=== PATIENT | male | born 1990 | race Caucasian/White ===

== ENCOUNTER → 2018-07-29 | Emergency (ER) | payer MEDICAID ==
[~2018-07-29] MED LIST: Amoxicillin/Clavulanate K 875-125 MG Tab ONE
--- NOTE | 2018-07-30 11:44 | EDM.PDOC ---
ED HPI GENERAL MEDICAL PROBLEM - General Chief Complaint: General Stated Complaint: Dental Pain Time Seen by Provider: 07/29/18 21:00 Source of Information: Reports: Patient History Limitations: Reports: No Limitations - History of Present Illness INITIAL COMMENTS - FREE TEXT/NARRATIVE: This is a 28yo M here for tooth pain or infection. He states he is unable to see his dentist until his MA gets approved. He has tooth pain and gum swelling on the left upper and lower molars. Onset: Gradual Duration: Week(s):, Getting Worse Quality: Reports: Ache Severity: Mild Tooth/Teeth Pain Score (Numeric/FACES): 6 - Related Data Allergies Allergy/AdvReac Type Severity Reaction Status Date / Time No Known Allergies Allergy Verified 07/29/18 20:37 Home Meds: Home Meds NK [No Known Home Meds] 04/10/14 [History] Past Medical History - Past Health History Medical/Surgical History: Denies Medical/Surgical History Musculoskeletal History: Reports: Other (See Below) Other Musculoskeletal History: "I broke my back a few years ago" - Past Surgical History GI Surgical History: Reports: Appendectomy Social & Family History - Tobacco Use Smoking Status *Q: Current Every Day Smoker Years of Tobacco use: 6 Packs/Tins Daily: 1 Used Tobacco, but Quit: No Second Hand Smoke Exposure: No - Caffeine Use Caffeine Use: Reports: Coffee - Recreational Drug Use Recreational Drug Use: No ED ROS GENERAL - Review of Systems Review Of Systems: ROS reveals no pertinent complaints other than HPI. ED EXAM, GENERAL - Physical Exam Exam: See Below Exam Limited By: No Limitations General Appearance: Alert, WD/WN, Mild Distress Ears: Normal External Exam Nose: Normal Inspection Throat/Mouth: Other (tooth caries, swollen left upper gums and tender left lower gum and molars) Head: Atraumatic, Normocephalic Neck: Normal Inspection Course - Vital Signs Last Recorded V/S: Last Vital Signs Temp 36.8 C 07/29/18 21:00 Pulse 65 07/29/18 21:00 Resp 16 07/29/18 21:00 BP 116/84 07/29/18 21:00 Pulse Ox 99 07/29/18 21:00 - Orders/Labs/Meds Meds: Medications Discontinued Medications Generic Name Dose Route Start Last Admin Trade Name Freq PRN Reason Stop Dose Admin Amoxicillin/Clavulanate Potassium 20 tab 07/29/18 21:00 Augmentin 875 Mg/125 Mg .ROUTE 07/29/18 21:01 .STK-MED ONE Departure - Departure Time of Disposition: 21:30 Disposition: Home, Self-Care 01 Condition: Good Clinical Impression: Tooth caries, Infected tooth - Discharge Information Instructions: Amoxicillin; Clavulanic Acid tablets Referrals: PCP,None [Primary Care Provider] - Forms: ED Department Discharge Additional Instructions: Begin taking provided Augmentin as directed: 1 tablet by mouth twice daily until all tablets are gone. May also take provided Aleve as directed: 2 tablets by mouth twice daily. Be sure to take with food to avoid upset stomach. DO NOT take any ibuprofen while taking Aleve. Follow up with dentist as soon as able. Call with any questions. - Problem List & Annotations (1) Infected tooth SNOMED Code(s): 170327213 Code(s): K04.7 - PERIAPICAL ABSCESS WITHOUT SINUS Status: Acute Priority : High Current Visit: Yes (2) Tooth caries SNOMED Code(s): 06908722 Code(s): K02.9 - DENTAL CARIES, UNSPECIFIED Status: Acute Priority: High Current Visit: Yes - Problem List Review Problem List Initiated/Reviewed/Updated: Yes - Assessment/Plan Plan: Patient placed on augmentin for 10 days. Discussed pain management with aleve and to take with food and water. Discussed f/u with dentist albaro. F/u as needed.
== END | disposition home or self-care (01) ==
LOC: LB.ED 20:35
DX: K04.7 Periapical abscess without sinus (principal); F17.210 Nicotine dependence, cigarettes, uncomplicated
CPT/HCPCS: 99282; A9270-GY

== ENCOUNTER 2018-10-14 11:49 | Emergency (ER) | payer MEDICAID ==
[2018-10-14] MEDS ORDERED: Acetaminophen/Codeine 300-30 MG Tab ONE (12:10)
[2018-10-14] MEDS ORDERED: Amoxicillin/Clavulanate K 875-125 MG Tab ONE (12:10)
--- NOTE | 2018-10-16 12:47 | EDM.PDOC ---
ED HPI GENERAL MEDICAL PROBLEM - General Time Seen by Provider: 10/14/18 11:59 - History of Present Illness INITIAL COMMENTS - FREE TEXT/NARRATIVE: This is a 28yo M here for concerns of a tooth chipped and pain radiating into the jaw. He has had teeth issues in the past and states he cannot get into his dentist right away. He denies any other concerns today. Onset: Sudden Duration: Day(s):, Getting Worse Quality: Reports: Ache Severity: Moderate Improves with: Reports: None Worsens with: Reports: None Associated Symptoms: Reports: No Other Symptoms Left Upper Tooth/Teeth Pain Score (Numeric/FACES): 10 - Related Data Allergies Allergy/AdvReac Type Severity Reaction Status Date / Time No Known Allergies Allergy Verified 10/14/18 11:58 Home Meds: Home Meds NK [No Known Home Meds] 04/10/14 [History] Past Medical History - Past Health History Medical/Surgical History: Denies Medical/Surgical History Musculoskeletal History: Reports: Other (See Below) Other Musculoskeletal History: "I broke my back a few years ago" - Past Surgical History GI Surgical History: Reports: Appendectomy Social & Family History - Caffeine Use Caffeine Use: Reports: Coffee ED ROS GENERAL - Review of Systems Review Of Systems: ROS reveals no pertinent complaints other than HPI. ED EXAM, GENERAL - Physical Exam Exam: See Below General Appearance: Alert, WD/WN, Mild Distress Eye Exam: Bilateral Eye: EOMI, PERRL Ears: Normal External Exam Nose: Normal Inspection Throat/Mouth: Other (caries and right upper molar crack) Head: Atraumatic, Normocephalic Neck: Normal Inspection Respiratory/Chest: No Respiratory Distress, Lungs Clear Cardiovascular: Normal Peripheral Pulses, Regular Rate, Rhythm GI/Abdominal: Normal Bowel Sounds Course - Vital Signs Last Recorded V/S: Last Vital Signs Temp 37.3 C 10/14/18 12:14 Pulse 71 10/14/18 12:14 Resp 18 10/14/18 12:14 BP 144/59 H 10/14/18 12:14 Pulse Ox 100 10/14/18 12:14 - Orders/Labs/Meds Meds: Medications Discontinued Medications Generic Name Dose Route Start Last Admin Trade Name Freq PRN Reason Stop Dose Admin Acetaminophen/Codeine Phosphate 20 tab 10/14/18 12:10 Tylenol With Codeine No.3 300mg/30mg .ROUTE 10/14/18 12:11 .STK-MED ONE Amoxicillin/Clavulanate Potassium 20 tab 10/14/18 12:10 Augmentin 875 Mg/125 Mg .ROUTE 10/14/18 12:11 .STK-MED ONE Departure - Departure Time of Disposition: 13:00 Disposition: Home, Self-Care 01 Condition: Good Clinical Impression: Infected tooth - Discharge Information Instructions: Tooth Injuries, [id number] Referrals: PCP,None [Primary Care Provider] - Additional Instructions: Discharge home. Diet: as tolerated Activity: as tolerated Medications: Tylenol with codeine 1 tablet every 4 hours for pain. Augmentin 1 tablet 2 times a day. Complete antibiotics. Follow up as needed and return to the ER if you have any questions or concerns. - Problem List & Annotations (1) Infected tooth SNOMED Code(s): 657857698 Code(s): K04.7 - PERIAPICAL ABSCESS WITHOUT SINUS Status: Acute Priority : High - Problem List Review Problem List Initiated/Reviewed/Updated: Yes - Assessment/Plan Plan: Counseled on supportive care and f/u with dentist. Discussed antibiotics use and side effects and taking them until completion. Discussed close f/u and rtc and dentist as directed. F/u as needed.
== END 2018-10-14 12:10 | disposition home or self-care (01) ==
LOC: LB.ED 11:49
DX: K04.7 Periapical abscess without sinus (principal); K02.9 Dental caries, unspecified; Z90.49 Acquired absence of other specified parts of digestive tract
CPT/HCPCS: 99282; A9270

== ENCOUNTER 2018-12-11 12:23 | Emergency (ER) | payer MEDICAID ==
--- NOTE | 2018-12-11 12:45 | EDM.PDOC ---
ED HPI GENERAL MEDICAL PROBLEM - General Chief Complaint: Gastrointestinal Problem Stated Complaint: STOMACH PAIN Time Seen by Provider: 12/11/18 12:35 Source of Information: Reports: Patient, Family, RN History Limitations: Reports: No Limitations - History of Present Illness INITIAL COMMENTS - FREE TEXT/NARRATIVE: 28 yr male presents with N/V, diarrhea and abdominal pain since this am. Middle Abdominal Pain Score (Numeric/FACES): 6 - Related Data Allergies Allergy/AdvReac Type Severity Reaction Status Date / Time No Known Allergies Allergy Verified 12/11/18 12:41 Home Meds: Home Meds Meloxicam 12/11/18 [History] Ondansetron [Zofran ODT] 4 mg PO Q8HR #9 tab.dis 12/11/18 [Rx] busPIRone HCl [Buspirone HCl] 15 mg PO DAILY 12/11/18 [History] Past Medical History - Past Health History Medical/Surgical History: Denies Medical/Surgical History Musculoskeletal History: Reports: Other (See Below) Other Musculoskeletal History: "I broke my back a few years ago" - Past Surgical History GI Surgical History: Reports: Appendectomy Social & Family History - Caffeine Use Caffeine Use: Reports: Coffee ED ROS GENERAL - Review of Systems Review Of Systems: See Below Constitutional: Reports: No Symptoms HEENT: Reports: No Symptoms Respiratory: Reports: No Symptoms, Other (smokes daily, about 1ppd) Cardiovascular: Reports: No Symptoms Endocrine: Reports: No Symptoms GI/Abdominal: Reports: Abdominal Pain, Diarrhea, Decreased Appetite, Nausea : Reports: No Symptoms Musculoskeletal: Reports: No Symptoms, Other (Takes Meloxicam and Steroid for back pain for 2 weeks.) Skin: Reports: No Symptoms Neurological: Reports: Headache Psychiatric: Reports: Anxiety (Takes medication for this) Hematologic/Lymphatic: Reports: No Symptoms Immunologic: Reports: No Symptoms ED EXAM, GI/ABD - Physical Exam Exam: See Below Exam Limited By: No Limitations General Appearance: Alert, No Apparent Distress Ears: Hearing Grossly Normal Nose: Normal Inspection Throat/Mouth: Normal Inspection, Normal Voice, No Airway Compromise Head: Atraumatic, Normocephalic Neck: Non-Tender, Full Range of Motion Respiratory/Chest: No Respiratory Distress, Lungs Clear, Normal Breath Sounds Cardiovascular: Regular Rate, Rhythm, No Edema GI/Abdominal Exam: Normal Bowel Sounds, Soft, Tender (low abdominal pain). No: Guarding (Male) Exam: Deferred Rectal (Males) Exam: Deferred Back Exam: Normal Inspection Extremities: Normal Range of Motion, Non-Tender, No Pedal Edema Neurological: Alert, Oriented, Normal Cognition Psychiatric: Normal Affect, Normal Mood Skin Exam: Warm, Dry, Normal Color Course - Vital Signs Last Recorded V/S: Last Vital Signs Temp 99.1 F 12/11/18 12:42 Pulse 71 12/11/18 12:42 Resp 20 12/11/18 12:42 BP 127/59 L 12/11/18 12:42 Pulse Ox 99 12/11/18 12:42 - Orders/Labs/Meds Labs: Laboratory Tests 12/11/18 12/11/18 Range/Units 12:52 12:52 WBC 6.7 D (4.0-11.0) K/uL RBC 4.76 (4.50-6.50) M/uL Hgb 15.5 (13.0-18.0) g/dL Hct 44.4 (40.0-54.0) % MCV 93 (76-96) fL MCH 32.6 H (27.0-32.0) pg MCHC 34.9 (31.0-35.0) g/dL RDW 11.9 (11.0-16.0) % Plt Count 182 (150-400) K/uL MPV 9.6 (6.0-10.0) fL Neut % (Auto) 62.8 (45.0-70.0) % Lymph % (Auto) 23.6 (20.0-40.0) % [place] % (Auto) 11.7 H (3.0-10.0) % Eos % (Auto) 1.6 (1.0-5.0) % Baso % (Auto) 0.3 (0.0-0.5) % Neut # (Auto) 4.23 (2.00-7.50) K/uL Lymph # (Auto) 1.59 (1.50-4.00) K/uL [place] # (Auto) 0.79 (0.20-0.80) K/uL Eos # (Auto) 0.11 (0.04-0.40) K/uL Baso # (Auto) 0.02 (0.02-0.10) K/uL Sodium 141 (136-145) mmol/L Potassium 4.2 (3.5-5.1) mmol/L Chloride 102 (98-107) mmol/L Carbon Dioxide 27.3 (21.0-32.0) mmol/L Anion Gap 15.9 H (5.0-15.0) mmol/L BUN 15 (8-26) mg/dL Creatinine 0.88 (0.70-1.30) mg/dL Est Cr Clr Drug Dosing 98.24 mL/min Estimated GFR (MDRD) > 60 (>60) MLS/MIN BUN/Creatinine Ratio 17.0 (6-25) Glucose 123 H (74-100) mg/dL Calcium 8.6 (8.5-10.1) mg/dL Total Bilirubin 1.3 H (0.0-1.0) mg/dL AST 32 (15-37) U/L ALT 39 (12-78) U/L Alkaline Phosphatase 74 (46-116) U/L Total Protein 6.9 (6.4-8.2) g/dL Albumin 3.9 (3.4-5.0) g/dL Globulin 3.0 (2.2-4.2) g/dL Albumin/Globulin Ratio 1.3 (0.8-2.0) Meds: Medications Discontinued Medications Generic Name Dose Route Start Last Admin Trade Name Freq PRN Reason Stop Dose Admin Sodium Chloride 1,000 mls @ 999 mls/hr 12/11/18 13:30 12/11/18 13:25 Normal Saline IV 999 mls/hr ASDIRECTED CASSANDRA Administration Ondansetron HCl 4 mg 12/11/18 13:16 12/11/18 13:17 Zofran Odt PO 4 mg Q8H PRN Administration Nausea/Vomiting Ondansetron HCl Confirm 12/11/18 13:24 Zofran Odt Administered 12/11/18 13:25 Dose 4 mg .ROUTE .STK-MED ONE - Re-Assessments/Exams Free Text/Narrative Re-Assessment/Exam: 12/11/18 14:01 Gastroenteritis: Zofran 4 mg PO given, IV fluids, NACL 1 liter bolus given. Symptoms improving. Labs reviewed, no leukocytosis and no electrolyte imbalance, Kidney function intact. Discharge to family care with Rx for Zofran, 1 tablet every 8 hour as needed for nausea. Note to be off of work today. Departure - Departure Time of Disposition: 14:38 Disposition: Home, Self-Care 01 Condition: Good Clinical Impression: Gastroenteritis - Discharge Information *PRESCRIPTION DRUG MONITORING PROGRAM REVIEWED*: Not Applicable *COPY OF PRESCRIPTION DRUG MONITORING REPORT IN PATIENT ARTURO: Not Applicable Prescriptions: Ondansetron [Zofran ODT] 4 mg PO Q8HR #9 tab.dis Instructions: Ondansetron oral dissolving tablet, Nausea and Vomiting, Adult Referrals: PCP,None [Primary Care Provider] - Forms: ED Department Discharge Additional Instructions: Discharge home. Do not go to work today, work excuss sent with patient. Zofran ODT 4mg 1 tablet every 8 hours as needed for nausea-script sent to the pharmacy to shredder picker. Follow up in the clinic as need. Call or return to the hospital if you have questions or concerns. - Assessment/Plan Plan: Gastroenteritis: Note for off of work today. Rx for Zofran 4mg PO q 8 hr prn nausea. JIM. Symptoms should improve in 24 hour. Discharge to family care.
[2018-12-11] MEDS ORDERED: Ondansetron 4 MG Tab.DIS PO PRN (13:16)
[2018-12-11] MEDS ORDERED: Ondansetron 4 MG Tab.DIS ONE (13:24)
[2018-12-11] MEDS ORDERED: Sodium Chloride 0.9% 1,000 ML IV SCH (13:30)
== END 2018-12-11 14:38 | disposition home or self-care (01) ==
LOC: LB.ED 12:23
DX: K52.9 Noninfective gastroenteritis and colitis, unspecified (principal); Z79.899 Other long term (current) drug therapy
CPT/HCPCS: 36415; 80053; 85025; 96360; 99284; A9270; J7030

== ENCOUNTER 2019-01-07 13:55 | Emergency (ER) | payer MEDICAID ==
--- NOTE | 2019-01-07 14:23 | EDM.PDOC ---
ED HPI GENERAL MEDICAL PROBLEM - General Chief Complaint: General Stated Complaint: NOT FEELING WELL Time Seen by Provider: 01/07/19 14:05 Source of Information: Reports: Patient, Family, RN History Limitations: Reports: No Limitations - History of Present Illness INITIAL COMMENTS - FREE TEXT/NARRATIVE: 28 yr male presents with dizziness, not feeling well and nauseated. States he did try to take 2 bites of food for lunch and this happened. He is using a new vaper pen with THC and was started about 1 week ago up to bid. Started taking from Rx of physician in [place] and went to [place] for the medication. States he is taking this for his back. His last dose was last night for this. States he does work at the local [employer]. His is with him today. States he has 2 young children at home. He is on FMLA currently and is working currently. - Related Data Allergies Allergy/AdvReac Type Severity Reaction Status Date / Time No Known Allergies Allergy Verified 01/07/19 13:59 Home Meds: Home Meds Ondansetron [Zofran ODT] 4 mg PO Q8HR #9 tab.dis 12/11/18 [Rx] busPIRone HCl [Buspirone HCl] 15 mg PO DAILY 12/11/18 [History] Acetaminophen [Tylenol Extra Strength] 1,000 mg PO Q8H PRN 01/07/19 [History] Amoxicillin 500 mg PO TID #30 capsule 01/07/19 [Rx] Non-Formulary Medication [NF Drug] 1 inh INH TID PRN 01/07/19 [History] Past Medical History - Past Health History Medical/Surgical History: Denies Medical/Surgical History Musculoskeletal History: Reports: Other (See Below) Other Musculoskeletal History: "I broke my back a few years ago" - Past Surgical History GI Surgical History: Reports: Appendectomy Social & Family History - Caffeine Use Caffeine Use: Reports: Coffee ED ROS GENERAL - Review of Systems Review Of Systems: See Below Constitutional: Denies: Fever, Chills Respiratory: Reports: No Symptoms Cardiovascular: Reports: Lightheadedness. Denies: Chest Pain, Dyspnea on Exertion GI/Abdominal: Reports: Nausea. Denies: Diarrhea, Vomiting : Reports: No Symptoms Musculoskeletal: Reports: No Symptoms Skin: Reports: No Symptoms Neurological: Reports: Dizziness, Headache. Denies: Confusion, Syncope, Difficulty Walking Psychiatric: Reports: No Symptoms Hematologic/Lymphatic: Reports: No Symptoms ED EXAM, GENERAL - Physical Exam Exam: See Below Exam Limited By: No Limitations General Appearance: Alert, No Apparent Distress Ears: Normal External Exam, Hearing Grossly Normal Ear Exam: Right Ear: Auricle Normal, TM normal, Left Ear: Canal Normal, Erythema , TM Bulging Throat/Mouth: Normal Oropharynx, Normal Voice, No Airway Compromise Head: Atraumatic, Normocephalic Neck: Normal Inspection, Supple, Non-Tender Respiratory/Chest: No Respiratory Distress, Lungs Clear, Normal Breath Sounds Cardiovascular: Regular Rate, Rhythm, No Edema GI/Abdominal: Normal Bowel Sounds, Soft, Non-Tender Extremities: Normal Range of Motion, No Pedal Edema Neurological: Alert, Oriented, Normal Cognition Psychiatric: Normal Affect, Normal Mood Skin Exam: Warm, Dry, Normal Color Lymphatic: No Adenopathy Course - Vital Signs Last Recorded V/S: Last Vital Signs Temp 99.0 F 01/07/19 14:01 Pulse 84 01/07/19 14:25 Resp 16 01/07/19 14:01 BP 120/50 L 01/07/19 14:25 Pulse Ox 99 01/07/19 14:25 - Orders/Labs/Meds Orders: Active Orders 24 hr Category Date Time Status EKG Documentation Completion [RC] ASDIRECTED Care 01/07/19 14:16 Active Labs: Laboratory Tests 01/07/19 01/07/19 Range/Units 14:13 14:13 WBC 8.0 (4.0-11.0) K/uL RBC 4.90 (4.50-6.50) M/uL Hgb 16.0 (13.0-18.0) g/dL Hct 45.8 (40.0-54.0) % MCV 94 (76-96) fL MCH 32.7 H (27.0-32.0) pg MCHC 34.9 (31.0-35.0) g/dL RDW 12.1 (11.0-16.0) % Plt Count 204 (150-400) K/uL MPV 9.3 (6.0-10.0) fL Neut % (Auto) 66.4 (45.0-70.0) % Lymph % (Auto) 22.4 (20.0-40.0) % [place] % (Auto) 9.9 (3.0-10.0) % Eos % (Auto) 1.2 (1.0-5.0) % Baso % (Auto) 0.1 (0.0-0.5) % Neut # (Auto) 5.32 (2.00-7.50) K/uL Lymph # (Auto) 1.80 (1.50-4.00) K/uL [place] # (Auto) 0.79 (0.20-0.80) K/uL Eos # (Auto) 0.10 (0.04-0.40) K/uL Baso # (Auto) 0.01 L (0.02-0.10) K/uL Sodium 141 (136-145) mmol/L Potassium 4.1 (3.5-5.1) mmol/L Chloride 103 (98-107) mmol/L Carbon Dioxide 29.9 (21.0-32.0) mmol/L Anion Gap 12.2 (5.0-15.0) mmol/L BUN 13 (8-26) mg/dL Creatinine 0.97 (0.70-1.30) mg/dL Est Cr Clr Drug Dosing TNP Estimated GFR (MDRD) > 60 (>60) MLS/MIN BUN/Creatinine Ratio 13.4 (6-25) Glucose 110 H (74-100) mg/dL Calcium 9.1 (8.5-10.1) mg/dL Total Bilirubin 1.3 H (0.0-1.0) mg/dL AST 33 (15-37) U/L ALT 52 (12-78) U/L Alkaline Phosphatase 74 (46-116) U/L Total Protein 7.3 (6.4-8.2) g/dL Albumin 4.0 (3.4-5.0) g/dL Globulin 3.3 (2.2-4.2) g/dL Albumin/Globulin Ratio 1.2 (0.8-2.0) - Re-Assessments/Exams Free Text/Narrative Re-Assessment/Exam: 01/07/19 15:49 LE Reviewed labs and EKG with pt. No orthostatic hypotension noted. EKG is NSR and no ST Changes noted. No leukocytosis noted, no electrolyte imbalance. Pt is asking for a note of this ER visit for his mother to watch his children, and she is missing work because of this. Left otitis media: Rx for Amoxicillin tid X 10 days. Recommend use of Tylenol 1000mg every 6 hour as needed and limit to 3000 - 4000 in 24 hour period. May alternate with Ibuprofen as needed. F/U with other provider for symptoms of THC vaping. Symptoms should improve in 2-3 days. RTC if symptoms persist or worsen. Departure - Departure Time of Disposition: 15:18 Disposition: Home, Self-Care 01 Condition: Good Clinical Impression: Left otitis media - Discharge Information *PRESCRIPTION DRUG MONITORING PROGRAM REVIEWED*: Not Applicable *COPY OF PRESCRIPTION DRUG MONITORING REPORT IN PATIENT ARTURO: Not Applicable Prescriptions: Amoxicillin 500 mg PO TID #30 capsule Instructions: Amoxicillin capsules or tablets, Otitis Media, Adult, Easy-to- Read Referrals: PCP,None [Primary Care Provider] - Forms: ED Department Discharge Additional Instructions: Tale Amoxicillin as prescribed for ear infection. Note given for work release. Follow up if you continue to have any more issues. - My Orders Last 24 Hours: My Active Orders 01/07/19 14:16 EKG Documentation Completion [RC] ASDIRECTED - Assessment/Plan Last 24 Hours: My Active Orders 01/07/19 14:16 EKG Documentation Completion [RC] ASDIRECTED Plan: Left otitis media: Rx for Amoxicillin tid X 10 days. Recommend use of Tylenol 1000mg every 6 hour as needed and limit to 3000 - 4000 in 24 hour period. May alternate with Ibuprofen as needed. F/U with other provider for symptoms of THC vaping. Symptoms should improve in 2-3 days. RTC if symptoms persist or worsen.
== END 2019-01-07 15:18 | disposition home or self-care (01) ==
LOC: LB.ED 13:55
DX: H66.92 Otitis media, unspecified, left ear (principal); Z79.899 Other long term (current) drug therapy
CPT/HCPCS: 36415; 80053; 85025; 93005; 99284-25

== ENCOUNTER 2019-09-24 00:47 | Emergency (ER) | payer MEDICAID ==
[2019-09-24] MEDS ORDERED: predniSONE 20 MG Tab PO ONE (02:10)
[2019-09-24] MEDS ORDERED: Albuterol/Ipratropium 3.0-0.5 MG/3 ML Neb Soln NEB ONE (02:10)
--- NOTE | 2019-09-24 02:26 | EDM.PDOC ---
ED HPI GENERAL MEDICAL PROBLEM - General Chief Complaint: Respiratory Problem Stated Complaint: DIFFICULTY BREATHING Time Seen by Provider: 09/24/19 02:00 - History of Present Illness INITIAL COMMENTS - FREE TEXT/NARRATIVE: Michael was about an hour out, returning home from [place], and called due to issues with some wheezing. This came on, relatively abruptly. No other associated symptoms. No trauma or cough. No nausea. Denies recent illness. He was vaping his marijuana and, sometimes near the end, it wull not really smell the best. They intercepted with his girlfriend driving about 5 miles [place] of [facility] [address]. Sats of 98% or better since arrival. No h/o asthma, or seasonal features. - Related Data Allergies Allergy/AdvReac Type Severity Reaction Status Date / Time No Known Allergies Allergy Verified 01/07/19 13:59 Home Meds: Home Meds Ondansetron [Zofran ODT] 4 mg PO Q8HR #9 tab.dis 12/11/18 [Rx] busPIRone HCl [Buspirone HCl] 15 mg PO DAILY 12/11/18 [History] Acetaminophen [Tylenol Extra Strength] 1,000 mg PO Q8H PRN 01/07/19 [History] Amoxicillin 500 mg PO TID #30 capsule 01/07/19 [Rx] Non-Formulary Medication [NF Drug] 1 inh INH TID PRN 01/07/19 [History] Past Medical History - Past Health History Medical/Surgical History: Denies Medical/Surgical History Gastrointestinal History: Reports: None Musculoskeletal History: Reports: Other (See Below) Other Musculoskeletal History: "I broke my back a few years ago" Psychiatric History: Reports: Anxiety - Past Surgical History GI Surgical History: Reports: Appendectomy Social & Family History - Caffeine Use Caffeine Use: Reports: Coffee ED ROS GENERAL - Review of Systems Review Of Systems: Comprehensive ROS is negative, except as noted in HPI. ED EXAM, GENERAL - Physical Exam Exam: See Below General Appearance: Alert, WD/WN, No Apparent Distress Eye Exam: Bilateral Eye: EOMI, Normal Inspection Ears: Normal External Exam, Hearing Grossly Normal Nose: Normal Inspection Head: Atraumatic, Normocephalic Neck: Normal Inspection, Supple, Non-Tender, Full Range of Motion Respiratory/Chest: No Respiratory Distress, Lungs Clear, Normal Breath Sounds Cardiovascular: Regular Rate, Rhythm, No Murmur GI/Abdominal: Normal Bowel Sounds, Soft Extremities: Normal Inspection, Non-Tender, No Pedal Edema, Normal Capillary Refill Psychiatric: Normal Affect, Normal Mood Skin Exam: Warm, Dry, Intact Lymphatic: No Adenopathy Course - Vital Signs Text/Narrative:: gave a neb with complete relief. Explained may have had some relative bronchospasm Departure - Departure Time of Disposition: 02:10 Disposition: Home, Self-Care 01 Clinical Impression: Chest tightness - Discharge Information Instructions: Shortness of Breath, Adult, [id number]
== END 2019-09-24 02:38 | disposition home or self-care (01) ==
LOC: LB.ED 00:47
DX: R07.89 Other chest pain (principal); Z79.899 Other long term (current) drug therapy
CPT/HCPCS: 94640; 99285; J7512; 99283; A0425; A0429; J7620-GY

== ENCOUNTER 2020-02-28 21:01 | Emergency (ER) | payer MEDICAID ==
[2020-02-28] MEDS ORDERED: LORazepam 2 MG/ML SDV IVPUSH ONE ×3 (21:50→22:01)
[2020-02-28] MEDS ORDERED: Ondansetron 4 MG/2 ML SDV IVPUSH ONE (21:53)
[2020-02-28] MEDS ORDERED: Sodium Chloride 0.9% 1,000 ML IV ONE (21:56)
[2020-02-28] MEDS ORDERED: Dextrose 5%-0.9% NaCl with KCl 1,000 ML ONE (22:24)
[2020-02-28] MEDS ORDERED: Dextrose 5%-0.9% NaCl with KCl 1,000 ML IV SCH (22:30)
--- NOTE | 2020-02-28 23:07 | EDM.PDOC ---
ED HPI GENERAL MEDICAL PROBLEM - General Chief Complaint: Respiratory Problem Stated Complaint: abd pain, feels like he can not breath Time Seen by Provider: 02/28/20 21:20 History Limitations: Reports: Other (Patient is extremely anxious) - History of Present Illness INITIAL COMMENTS - FREE TEXT/NARRATIVE: The patient is a 29-year-old white male who reports that he was in [place] 1 hour ago. He was offered marijuana and shared some marijuana with an acquaintance. He reports that 20 to 30 minutes later he started having problems with visual swirling, tremor ,dry skin, nausea without vomiting and dry mouth felt short of breath prior to coming to the emergency department. He thinks he may be reacting to whatever it was that he smoked. The patient uses medical marijuana on a near daily basis. States he is never felt this way for marijuana. Onset: Other (30 minutes prior to arrival) Onset Date: 02/28/20 Onset Time: 20:30 Duration: Other (30 minutes) Location: Reports: Other (Abdominal discomfort from symphysis to epigastric region) - Related Data Allergies Allergy/AdvReac Type Severity Reaction Status Date / Time No Known Allergies Allergy Verified 01/07/19 13:59 Home Meds: Home Meds Non-Formulary Medication [NF Drug] 1 inh INH TID PRN 01/07/19 [History] Past Medical History - Past Health History Medical/Surgical History: Denies Medical/Surgical History Gastrointestinal History: Reports: None Musculoskeletal History: Reports: Other (See Below) Other Musculoskeletal History: "I broke my back a few years ago" Psychiatric History: Reports: Anxiety - Past Surgical History GI Surgical History: Reports: Appendectomy Social & Family History - Caffeine Use Caffeine Use: Reports: Coffee - Alcohol Use Alcohol Use Frequency: Not Used in Over 6 Months ED ROS GENERAL - Review of Systems Review Of Systems: See Below Constitutional: Denies: Fever, Chills HEENT: Reports: No Symptoms, Vision Change Respiratory: Reports: Shortness of Breath. Denies: Cough, Sputum Cardiovascular: Reports: Lightheadedness. Denies: Chest Pain, Blood Pressure Problem GI/Abdominal: Reports: Abdominal Pain, Nausea. Denies: Distension, Vomiting : Reports: No Symptoms Musculoskeletal: Reports: No Symptoms Skin: Reports: Other (Dry skin) Neurological: Reports: Tremors Psychiatric: Reports: Agitation, Anxiety. Denies: Hallucinations ED EXAM, GENERAL - Physical Exam Exam: See Below Exam Limited By: Other (Anxiety of the patient) General Appearance: Alert, Anxious, Moderate Distress Ears: Normal External Exam, Normal Canal, Hearing Grossly Normal Ear Exam: Bilateral Ear: TM normal Nose: Normal Inspection, Normal Mucosa Throat/Mouth: Normal Inspection, Normal Lips, Normal Gums, Normal Oropharynx, Normal Voice, No Airway Compromise Head: Atraumatic, Normocephalic Neck: Supple, Non-Tender, Full Range of Motion Respiratory/Chest: Lungs Clear, Normal Breath Sounds, Chest Non-Tender, Respiratory Distress Cardiovascular: No JVD, Tachycardia, Other (Rate 135) GI/Abdominal: Soft, Non-Tender, No Distention Back Exam: Normal Inspection, Full Range of Motion Extremities: Normal Inspection, Normal Range of Motion, Non-Tender, No Pedal Edema Neurological: Alert, Oriented Psychiatric: Anxious, Other (Repeats himself often) Skin Exam: Warm, Intact, Normal Color, No Rash Lymphatic: No Adenopathy #1 Interpretation EKG Date: 02/28/20 Time: 21:30 Rhythm: Other (Sinus tachycardia without infarct or ischemia by my reading) Rate (Beats/Min): 135 Comparison: NA - No Prior EKG EKG Interpretation Comments: Sinus tachycardia Course - Vital Signs Text/Narrative:: The patient initially had an EKG and saline lock started. He was treated with Ativan 2 mg IV followed by 2 further milligrams IV. He improved gradually and was given another 1 mg dose of Ativan.. Along with the Ativan the patient was treated with 2 -4 mg doses of Zofran. IV of normal saline was started and run at 999 an hour. After potassium returned at 2.9 the IV was changed to D5 normal saline with 20 KCl at 500 mils per hour. Patient's tachycardia gradually improved. His nausea improved as well he was given a raspy sandwich as he said he was hungry. He is resting quietly at this time. Plan is to complete the liter of D5 normal saline with 20 KCl and discharge to home if patient continues to do well Last Recorded V/S: Last Vital Signs Temp 98.9 F 02/28/20 21:20 Pulse 90 02/29/20 00:11 Resp 16 02/29/20 00:11 BP 104/48 L 02/29/20 00:11 Pulse Ox 100 02/29/20 00:11 - Orders/Labs/Meds Labs: Laboratory Tests 02/28/20 02/28/20 02/28/20 Range/Units 21:09 21:58 21:58 WBC 15.3 H D (4.0-11.0) K/uL RBC 4.91 (4.50-6.50) M/uL Hgb 16.0 (13.0-18.0) g/dL Hct 45.1 (40.0-54.0) % MCV 92 (76-96) fL MCH 32.6 H (27.0-32.0) pg MCHC 35.5 H (31.0-35.0) g/dL RDW 12.0 (11.0-16.0) % Plt Count 259 D (150-400) K/uL MPV 10.0 (6.0-10.0) fL Neut % (Auto) 62.3 (45.0-70.0) % Lymph % (Auto) 26.7 (20.0-40.0) % [place] % (Auto) 9.7 (3.0-10.0) % Eos % (Auto) 1.2 (1.0-5.0) % Baso % (Auto) 0.1 (0.0-0.5) % Neut # (Auto) 9.52 H (2.00-7.50) K/uL Lymph # (Auto) 4.09 H (1.50-4.00) K/uL [place] # (Auto) 1.49 H (0.20-0.80) K/uL Eos # (Auto) 0.19 (0.04-0.40) K/uL Baso # (Auto) 0.02 (0.02-0.10) K/uL Sodium 138 (136-145) mmol/L Potassium 2.9 L* D (3.5-5.1) mmol/L Chloride 101 (98-107) mmol/L Carbon Dioxide 24.0 (21.0-32.0) mmol/L Anion Gap 15.9 H (5.0-15.0) mmol/L BUN 17 D (8-26) mg/dL Creatinine 1.00 (0.70-1.30) mg/dL Est Cr Clr Drug Dosing TNP Estimated GFR (MDRD) > 60 (>60) MLS/MIN BUN/Creatinine Ratio 17.0 (6-25) Glucose 119 H (74-100) mg/dL Calcium 9.0 (8.5-10.1) mg/dL Total Bilirubin 0.8 D (0.0-1.0) mg/dL AST 21 (15-37) U/L ALT 28 (12-78) U/L Alkaline Phosphatase 80 (46-116) U/L Total Protein 7.4 (6.4-8.2) g/dL Albumin 4.2 (3.4-5.0) g/dL Globulin 3.2 (2.2-4.2) g/dL Albumin/Globulin Ratio 1.3 (0.8-2.0) Urine Opiates Screen (NEGATIVE) Ur Oxycodone Screen (NEGATIVE) Urine Methadone Screen (NEGATIVE) Ur Barbiturates Screen (NEGATIVE) Ur Tricyclics Screen (NEGATIVE) Ur Phencyclidine Scrn (NEGATIVE) Ur Amphetamine Screen (NEGATIVE) U Methamphetamines Scrn (NEGATIVE) Urine MDMA Screen (NEGATIVE) U Benzodiazepines Scrn (NEGATIVE) U Cocaine Metab Screen (NEGATIVE) U Marijuana (THC) Screen (NEGATIVE) SARS CoV-2 RNA Rapid YOGI Negative 02/28/20 Range/Units 21:59 WBC (4.0-11.0) K/uL RBC (4.50-6.50) M/uL Hgb (13.0-18.0) g/dL Hct (40.0-54.0) % MCV (76-96) fL MCH (27.0-32.0) pg MCHC (31.0-35.0) g/dL RDW (11.0-16.0) % Plt Count (150-400) K/uL MPV (6.0-10.0) fL Neut % (Auto) (45.0-70.0) % Lymph % (Auto) (20.0-40.0) % [place] % (Auto) (3.0-10.0) % Eos % (Auto) (1.0-5.0) % Baso % (Auto) (0.0-0.5) % Neut # (Auto) (2.00-7.50) K/uL Lymph # (Auto) (1.50-4.00) K/uL [place] # (Auto) (0.20-0.80) K/uL Eos # (Auto) (0.04-0.40) K/uL Baso # (Auto) (0.02-0.10) K/uL Sodium (136-145) mmol/L Potassium (3.5-5.1) mmol/L Chloride (98-107) mmol/L Carbon Dioxide (21.0-32.0) mmol/L Anion Gap (5.0-15.0) mmol/L BUN (8-26) mg/dL Creatinine (0.70-1.30) mg/dL Est Cr Clr Drug Dosing Estimated GFR (MDRD) (>60) MLS/MIN BUN/Creatinine Ratio (6-25) Glucose (74-100) mg/dL Calcium (8.5-10.1) mg/dL Total Bilirubin (0.0-1.0) mg/dL AST (15-37) U/L ALT (12-78) U/L Alkaline Phosphatase (46-116) U/L Total Protein (6.4-8.2) g/dL Albumin (3.4-5.0) g/dL Globulin (2.2-4.2) g/dL Albumin/Globulin Ratio (0.8-2.0) Urine Opiates Screen Negative (NEGATIVE) Ur Oxycodone Screen Negative (NEGATIVE) Urine Methadone Screen Negative (NEGATIVE) Ur Barbiturates Screen Negative (NEGATIVE) Ur Tricyclics Screen Negative (NEGATIVE) Ur Phencyclidine Scrn Negative (NEGATIVE) Ur Amphetamine Screen Negative (NEGATIVE) U Methamphetamines Scrn Negative (NEGATIVE) Urine MDMA Screen Negative (NEGATIVE) U Benzodiazepines Scrn Negative (NEGATIVE) U Cocaine Metab Screen Negative (NEGATIVE) U Marijuana (THC) Screen Negative (NEGATIVE) SARS CoV-2 RNA Rapid YOGI Meds: Medications Discontinued Medications Generic Name Dose Route Start Last Admin Trade Name Freq PRN Reason Stop Dose Admin Sodium Chloride 1,000 mls @ 999 mls/hr 02/28/20 21:56 02/28/20 22:30 Normal Saline IV 02/28/20 22:56 Infused .BOLUS ONE Infusion Potassium Chloride/Dextrose/Sod Cl 1,000 mls @ 500 mls/hr 02/28/20 22:30 02/28/20 22:30 D5 Ns With 20 Meq Kcl IV 500 mls/hr ASDIRECTED CASSANDRA Administration Potassium Chloride/Dextrose/Sod Cl Confirm 02/28/20 22:24 02/28/20 23:32 D5 Ns With 20 Meq Kcl Administered 02/28/20 22:25 Not Given Dose 1,000 mls @ as directed .ROUTE .STK-MED ONE Lorazepam 2 mg 02/28/20 21:50 02/28/20 21:30 Ativan IVPUSH 02/28/20 21:51 2 mg ONETIME ONE Administration Lorazepam 2 mg 02/28/20 21:54 02/28/20 21:51 Ativan IVPUSH 02/28/20 21:55 2 mg ONETIME ONE Administration Lorazepam 1 mg 02/28/20 22:01 02/28/20 22:11 Ativan IVPUSH 02/28/20 22:02 1 mg ONETIME ONE Administration Ondansetron HCl 8 mg 02/28/20 21:53 02/28/20 21:53 Zofran IVPUSH 02/28/20 21:54 8 mg ONETIME ONE Administration Departure - Departure Time of Disposition: 06:30 Disposition: Home, Self-Care 01 Clinical Impression: Ingestion, drug, inadvertent or accidental Qualifiers: Encounter type: initial encounter Qualified Code(s): T50.901A - Poisoning by unspecified drugs, medicaments and biological substances, accidental (unintentional), initial encounter - Discharge Information *PRESCRIPTION DRUG MONITORING PROGRAM REVIEWED*: Not Applicable *COPY OF PRESCRIPTION DRUG MONITORING REPORT IN PATIENT ARTURO: Not Applicable Instructions: Accidental Drug Poisoning, Adult Referrals: PCP,None [Primary Care Provider] - Forms: ED Department Discharge Additional Instructions: Do not smoke any street drugs even marijuana to avoid accidental ingestion of unknown drugs Return if symptoms worsen. Follow up in ED if not 100 per centback to normal tomorrow. Follow up in clinic or ED as needed for any worsening
== END 2020-02-29 06:35 | disposition home or self-care (01) ==
LOC: LB.ED 21:01
DX: T40.7X1A Poisoning by cannabis (derivatives), accidental (unintentional), initial encounter (principal); F41.9 Anxiety disorder, unspecified; Z90.49 Acquired absence of other specified parts of digestive tract; Z20.828 Contact with and (suspected) exposure to other viral communicable diseases
CPT/HCPCS: 36415; 80053; 80307; 85025; 96365; 96366; 96375; 96376; 99284; 99284-25; J2060; J2405; J3480; J7040; U0002

== ENCOUNTER 2020-03-01 14:59 | Emergency (ER) | payer MEDICAID ==
--- NOTE | 2020-03-01 15:44 | EDM.PDOC ---
ED HPI GENERAL MEDICAL PROBLEM - General Chief Complaint: General Stated Complaint: TROUBLE BREATHING Time Seen by Provider: 03/01/20 15:15 Source of Information: Reports: Patient - History of Present Illness INITIAL COMMENTS - FREE TEXT/NARRATIVE: Patient states he has been having generalized abdominal pain for over 2 weeks. He had a negative abd CT in [place] 2 weeks ago. The pain has not changed and is intermittent. + nausea at times. Denies any fever, chills, cough (aside from his "normal " smokers cough), diarrhea, bloody or aria tarry stools, or bloody emesis. C/O chest pain, anxiety, and generalized abdominal pain. Onset Date: 02/15/20 Location: Reports: Chest, Abdomen Quality: Reports: Ache Severity: Mild Improves with: Reports: None Worsens with: Reports: None Associated Symptoms: Reports: Chest Pain, Loss of Appetite - Related Data Allergies Allergy/AdvReac Type Severity Reaction Status Date / Time No Known Allergies Allergy Verified 03/01/20 15:06 Home Meds: Home Meds Non-Formulary Medication [NF Drug] 1 inh INH TID PRN 01/07/19 [History] Past Medical History - Past Health History Medical/Surgical History: Denies Medical/Surgical History Gastrointestinal History: Reports: None Musculoskeletal History: Reports: Other (See Below) Other Musculoskeletal History: "I broke my back a few years ago" Psychiatric History: Reports: Anxiety - Past Surgical History GI Surgical History: Reports: Appendectomy Social & Family History - Tobacco Use Years of Tobacco use: 17 Packs/Tins Daily: 1 - Caffeine Use Caffeine Use: Reports: Coffee - Recreational Drug Use Recreational Drug Type: Reports: Marijuana/Hashish Recreational Drug Use Frequency: Daily ED ROS GENERAL - Review of Systems Review Of Systems: See Below Constitutional: Reports: No Symptoms HEENT: Reports: No Symptoms Respiratory: Reports: Other (he feels that he is unable to take a deep breath or smoke) Cardiovascular: Reports: Chest Pain Endocrine: Reports: No Symptoms GI/Abdominal: Reports: Abdominal Pain, Decreased Appetite, Nausea : Reports: No Symptoms. Denies: Discharge, Flank Pain Musculoskeletal: Reports: Back Pain (chronic, takes medical cannabis) Skin: Reports: No Symptoms Neurological: Reports: No Symptoms Psychiatric: Reports: Anxiety (patient is very anxious) Immunologic: Reports: No Symptoms ED EXAM, GENERAL - Physical Exam Exam: See Below Exam Limited By: No Limitations General Appearance: Alert, Anxious Ears: Normal External Exam Nose: Normal Inspection Head: Atraumatic Neck: Normal Inspection, Non-Tender, Full Range of Motion Respiratory/Chest: No Respiratory Distress, Lungs Clear, Normal Breath Sounds, No Accessory Muscle Use Cardiovascular: Normal Peripheral Pulses, Regular Rate, Rhythm, No Edema, No JVD, No Murmur Peripheral Pulses: 3+: Radial (L), Radial (R), Posterior Tibial (L), Posterior Tibial (R) GI/Abdominal: Normal Bowel Sounds, Soft, No Organomegaly, No Distention, Tender Back Exam: Normal Inspection. No: CVA Tenderness (R), CVA Tenderness (L) Extremities: Normal Inspection, Normal Range of Motion, Non-Tender, No Pedal Edema, Normal Capillary Refill Neurological: Alert, Oriented, Normal Cognition, No Motor/Sensory Deficits Psychiatric: Normal Affect, Anxious Skin Exam: Warm, Dry, Intact, Normal Color Course - Vital Signs Last Recorded V/S: Last Vital Signs Temp 97.8 F 03/01/20 15:08 Pulse 97 03/01/20 15:08 Resp 18 03/01/20 15:08 BP 158/76 H 03/01/20 15:08 Pulse Ox 99 03/01/20 15:08 - Orders/Labs/Meds Orders: Active Orders 24 hr Category Date Time Status EKG Documentation Completion [RC] ASDIRECTED Care 03/01/20 15:36 Active Chest 1V Frontal [CR] Stat Exams 03/01/20 15:34 Taken EKG 12 Lead [EK] Routine Ther 03/01/20 15:35 Ordered Labs: Laboratory Tests 03/01/20 03/01/20 03/01/20 Range/Units 15:34 15:34 16:03 WBC 6.8 D (4.0-11.0) K/uL RBC 4.99 (4.50-6.50) M/uL Hgb 16.2 (13.0-18.0) g/dL Hct 46.7 (40.0-54.0) % MCV 94 (76-96) fL MCH 32.5 H (27.0-32.0) pg MCHC 34.7 (31.0-35.0) g/dL RDW 12.2 (11.0-16.0) % Plt Count 221 (150-400) K/uL MPV 9.4 (6.0-10.0) fL Neut % (Auto) 60.7 (45.0-70.0) % Lymph % (Auto) 26.1 (20.0-40.0) % [place] % (Auto) 11.7 H (3.0-10.0) % Eos % (Auto) 1.2 (1.0-5.0) % Baso % (Auto) 0.3 (0.0-0.5) % Neut # (Auto) 4.10 (2.00-7.50) K/uL Lymph # (Auto) 1.76 (1.50-4.00) K/uL [place] # (Auto) 0.79 (0.20-0.80) K/uL Eos # (Auto) 0.08 (0.04-0.40) K/uL Baso # (Auto) 0.02 (0.02-0.10) K/uL Sodium 140 (136-145) mmol/L Potassium 3.7 D (3.5-5.1) mmol/L Chloride 103 (98-107) mmol/L Carbon Dioxide 27.7 (21.0-32.0) mmol/L Anion Gap 13.0 (5.0-15.0) mmol/L BUN 11 D (8-26) mg/dL Creatinine 0.96 (0.70-1.30) mg/dL Est Cr Clr Drug Dosing 89.26 mL/min Estimated GFR (MDRD) > 60 (>60) MLS/MIN BUN/Creatinine Ratio 11.5 (6-25) Glucose 127 H (74-100) mg/dL Calcium 9.1 (8.5-10.1) mg/dL Total Bilirubin 1.3 H D (0.0-1.0) mg/dL AST 28 (15-37) U/L ALT 33 (12-78) U/L Alkaline Phosphatase 79 (46-116) U/L Total Protein 7.5 (6.4-8.2) g/dL Albumin 4.3 (3.4-5.0) g/dL Globulin 3.2 (2.2-4.2) g/dL Albumin/Globulin Ratio 1.3 (0.8-2.0) Lipase 121 (73-393) U/L Meds: Medications Discontinued Medications Generic Name Dose Route Start Last Admin Trade Name Fallon PRN Reason Stop Dose Admin Ketorolac Tromethamine 15 mg 03/01/20 16:21 03/01/20 16:24 Toradol IVPUSH 03/01/20 16:22 15 mg ONETIME ONE Administration Ketorolac Tromethamine Confirm 03/01/20 16:31 03/01/20 16:25 Toradol Administered 03/01/20 16:32 Not Given Dose 30 mg .ROUTE .STK-MED ONE - Re-Assessments/Exams Free Text/Narrative Re-Assessment/Exam: 03/01/20 16:54 We discussed having an ABD CT. He states he has had several, latest 2 weeks ago with negative results. We discussed radiation and decided to have outpatient US tomorrow. Patient is quite agreeable to the plan. Departure - Departure Time of Disposition: 16:51 Disposition: Home, Self-Care 01 Condition: Good Clinical Impression: Abdominal pain of unknown etiology - Discharge Information *PRESCRIPTION DRUG MONITORING PROGRAM REVIEWED*: Not Applicable *COPY OF PRESCRIPTION DRUG MONITORING REPORT IN PATIENT ARTURO: Not Applicable Instructions: Abdominal Pain, Adult, [id number] Referrals: PCP,None [Primary Care Provider] - Forms: ED Department Discharge Additional Instructions: Have US done tomorrow as discussed. Results will go to Kinza meza MD in [place]. Return to ED for any increased or new concerning symptoms. Sepsis Event Note (ED) - Evaluation Sepsis Screening Result: No Definite Risk - Focused Exam Vital Signs: Vital Signs Temp Pulse Resp BP Pulse Ox 03/01/20 15:08 97.8 F 97 18 158/76 H 99 - My Orders Last 24 Hours: My Active Orders 03/01/20 15:34 Chest 1V Frontal [CR] Stat 03/01/20 15:35 EKG 12 Lead [EK] Routine 03/01/20 15:36 EKG Documentation Completion [RC] ASDIRECTED - Assessment/Plan Last 24 Hours: My Active Orders 03/01/20 15:34 Chest 1V Frontal [CR] Stat 03/01/20 15:35 EKG 12 Lead [EK] Routine 03/01/20 15:36 EKG Documentation Completion [RC] ASDIRECTED Plan: Pain is much improved after IV toradol, patient now C/O nausea, will medicate wi th 8mg zofran ODT prior to DC. Patient agreeable to out patient US tomorrow at 1230, NPO for 4 hours prior. We discussed when to return to ED, he verbalized understanding. DDX: appendicitis, diverticulitis, pancreatitis, or gastritis. PMH appendectomy, lipase negative.
[2020-03-01] MEDS ORDERED: Ketorolac 60 MG/2 ML SDV IVPUSH ONE (16:21)
[2020-03-01] MEDS ORDERED: Ketorolac 30 MG/ML SDV ONE (16:31)
--- NOTE | 2020-03-01 16:51 | CR ---
DATE OF SERVICE: 03/01/2020 CLINICAL DATA: Chest Pain AP chest: Comparison is made to a prior exam dated 21 August 2014. The heart size is normal. The lungs are clear. No pneumothorax. No pleural effusions. No evidence of acute intrathoracic disease. MTDD
[2020-03-01] MEDS ORDERED: Ondansetron 4 MG Tab.DIS PO ONE (16:53)
[2020-03-01] MEDS ORDERED: Ondansetron 4 MG Tab.DIS ONE (17:07)
== END 2020-03-01 17:00 | disposition home or self-care (01) ==
LOC: LB.ED 14:59
DX: R10.84 Generalized abdominal pain (principal); F17.210 Nicotine dependence, cigarettes, uncomplicated
CPT/HCPCS: 36415; 71045; 80053; 83690; 85025; 96374; 99285-25; A9270-GY; J1885

== ENCOUNTER 2020-04-04 04:26 | Emergency (ER) | payer MEDICAID ==
[2020-04-04] MEDS ORDERED: Sodium Chloride 0.9% 1,000 ML IV ONE (05:00)
[2020-04-04] MEDS ORDERED: Sodium Chloride 0.9% 10 ML Syringe FLUSH PRN (05:00)
[2020-04-04] MEDS ORDERED: Prochlorperazine 10 MG in Sodium Chloride 0.9% 50 ML IV ONE (05:00)
--- NOTE | 2020-04-04 05:07 | EDM.PDOC ---
ED HPI GENERAL MEDICAL PROBLEM - General Chief Complaint: General Stated Complaint: Feeling unwell Time Seen by Provider: 04/04/20 04:45 Source of Information: Reports: Patient History Limitations: Reports: No Limitations - History of Present Illness INITIAL COMMENTS - FREE TEXT/NARRATIVE: pt presents to the ER "feeling unwell" stating he woke up yesterday feeling such and vomited, went to work and felt worse throughout the day. associated symptoms are intermittent SOB, nausea, vomiting, fatigue. pt denies chest pain, fever, weakness,cough. - Related Data Allergies Allergy/AdvReac Type Severity Reaction Status Date / Time No Known Allergies Allergy Verified 03/01/20 15:06 Home Meds: Home Meds Non-Formulary Medication [NF Drug] 1 inh INH TID PRN 01/07/19 [History] Past Medical History - Past Health History Medical/Surgical History: Denies Medical/Surgical History Gastrointestinal History: Reports: None Musculoskeletal History: Reports: Other (See Below) Other Musculoskeletal History: "I broke my back a few years ago" Psychiatric History: Reports: Anxiety - Past Surgical History GI Surgical History: Reports: Appendectomy Social & Family History - Caffeine Use Caffeine Use: Reports: Coffee ED ROS GENERAL - Review of Systems Review Of Systems: Comprehensive ROS is negative, except as noted in HPI. ED EXAM, GENERAL - Physical Exam Exam: See Below Exam Limited By: No Limitations General Appearance: Alert, WD/WN Eye Exam: Bilateral Eye: EOMI, PERRL Throat/Mouth: Normal Oropharynx, Normal Voice, No Airway Compromise Respiratory/Chest: No Respiratory Distress, Lungs Clear, Normal Breath Sounds, No Accessory Muscle Use Cardiovascular: Normal Peripheral Pulses, Regular Rate, Rhythm, No Edema, No Murmur Peripheral Pulses: 2+: Radial (L), Radial (R), Posterior Tibial (L), Posterior Tibial (R) Extremities: Normal Inspection, Normal Range of Motion, Non-Tender, No Pedal Edema, Normal Capillary Refill Neurological: Alert, Oriented, Normal Cognition, Normal Gait, No Motor/Sensory Deficits Psychiatric: Normal Affect, Normal Mood Skin Exam: Warm, Dry, Intact Course - Vital Signs Last Recorded V/S: Last Vital Signs Temp 98.1 F 04/04/20 04:37 Pulse 107 H 04/04/20 04:37 Resp 20 04/04/20 04:37 BP 152/93 H 04/04/20 04:37 Pulse Ox 100 04/04/20 04:37 - Orders/Labs/Meds Orders: Active Orders 24 hr Category Date Time Status Peripheral IV Care [RC] PRN Care 04/04/20 05:00 Ordered CBC WITH AUTO DIFF [HEME] Stat Lab 04/04/20 04:58 Ordered COMPREHENSIVE METABOLIC PN,CMP [CHEM] Stat Lab 04/04/20 04:58 Ordered CORONAVIRUS COVID-19 RAPID [MOLEC] Stat Lab 04/04/20 05:00 Ordered Prochlorperazine [Compazine] 10 mg Med 04/04/20 05:00 Ordered Sodium Chloride 0.9% [Normal Saline] 50 ml IV ONETIME Sodium Chloride 0.9% [Normal Saline] 1,000 ml Med 04/04/20 05:00 Ordered IV .BOLUS Sodium Chloride 0.9% [Saline Flush] Med 04/04/20 05:00 Ordered 10 ml FLUSH ASDIRECTED PRN Peripheral IV Insertion Adult [OM.PC] Routine Oth 04/04/20 05:00 Ordered Departure - Departure Time of Disposition: 06:15 Disposition: Home, Self-Care 01 Condition: Good Clinical Impression: Gastroenteritis - Discharge Information *PRESCRIPTION DRUG MONITORING PROGRAM REVIEWED*: No *COPY OF PRESCRIPTION DRUG MONITORING REPORT IN PATIENT ARTURO: No Referrals: PCP,None [Primary Care Provider] - Additional Instructions: stop drinking alcohol drink at least 100oz water a day take tylenol and ibuprofen as needed you shouldn't need any nausea medicine foods high in potassium are cantaloupe, green leafy veggies. Sepsis Event Note (ED) - Evaluation Sepsis Screening Result: No Definite Risk - Focused Exam Vital Signs: Vital Signs Temp Pulse Resp BP Pulse Ox 04/04/20 04:37 98.1 F 107 H 20 152/93 H 100 - Problem List & Annotations (1) Gastroenteritis SNOMED Code(s): 66898557 Code(s): K52.9 - NONINFECTIVE GASTROENTERITIS AND COLITIS, UNSPECIFIED Status: Acute Current Visit: Yes - Problem List Review Problem List Initiated/Reviewed/Updated: Yes - My Orders Last 24 Hours: My Active Orders 04/04/20 04:58 CBC WITH AUTO DIFF [HEME] Stat COMPREHENSIVE METABOLIC PN,CMP [CHEM] Stat 04/04/20 05:00 Peripheral IV Care [RC] PRN CORONAVIRUS COVID-19 RAPID [MOLEC] Stat Prochlorperazine [Compazine] 10 mg Sodium Chloride 0.9% [Normal Saline] 50 ml IV ONETIME Sodium Chloride 0.9% [Normal Saline] 1,000 ml IV .BOLUS Sodium Chloride 0.9% [Saline Flush] 10 ml FLUSH ASDIRECTED PRN Peripheral IV Insertion Adult [OM.PC] Routine - Assessment/Plan Last 24 Hours: My Active Orders 04/04/20 04:58 CBC WITH AUTO DIFF [HEME] Stat COMPREHENSIVE METABOLIC PN,CMP [CHEM] Stat 04/04/20 05:00 Peripheral IV Care [RC] PRN CORONAVIRUS COVID-19 RAPID [MOLEC] Stat Prochlorperazine [Compazine] 10 mg Sodium Chloride 0.9% [Normal Saline] 50 ml IV ONETIME Sodium Chloride 0.9% [Normal Saline] 1,000 ml IV .BOLUS Sodium Chloride 0.9% [Saline Flush] 10 ml FLUSH ASDIRECTED PRN Peripheral IV Insertion Adult [OM.PC] Routine Assessment:: assessment: gastroenteritis plan: home care instructions of drink fluids, OTC pain relievers, follow up in clinic, stop drinking alcohol differentials considered were acute alcohol, anxiety, acute drug ingestion.
[2020-04-04] MEDS ORDERED: Prochlorperazine 10 MG/2 ML SDV ONE (05:27)
[2020-04-04] MEDS ORDERED: Potassium Chloride 10 MEQ Tab.ER PO SCH (08:00)
== END 2020-04-04 06:35 | disposition home or self-care (01) ==
LOC: LB.ED 04:26
DX: K52.9 Noninfective gastroenteritis and colitis, unspecified (principal); Z20.828 Contact with and (suspected) exposure to other viral communicable diseases
CPT/HCPCS: 36415; 80053; 85025; 87635; 96365; 99284; A9270; J0780; J7030; 99283; U0002

== ENCOUNTER 2020-05-01 14:56 | Emergency (ER) | payer MEDICAID ==
[2020-05-01] MEDS ORDERED: Ibuprofen 200 MG Tab ONE (15:00)
[2020-05-01] MEDS ORDERED: Acetaminophen 325 MG Tab PO ONE (15:49)
[2020-05-01] MEDS ORDERED: Ibuprofen 400 MG Tab PO ONE (15:49)
--- NOTE | 2020-05-01 15:50 | EDM.PDOC ---
ED HPI GENERAL MEDICAL PROBLEM - General Chief Complaint: Upper Extremity Injury/Pain Stated Complaint: SHOULDER PAIN Time Seen by Provider: 05/01/20 15:35 Source of Information: Reports: Patient - History of Present Illness INITIAL COMMENTS - FREE TEXT/NARRATIVE: 29 year old male presents with 2-3 days of right shoulder pain, states he had it when he woke up. Denies any injury or trauma. Has full ROM although with pain. Has been taking 200mg ibuprofen and 1 tylenol at home without relief. Denies any cough, numbness, CP, SOB, or N/V/D. 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, NSAIDS - Related Data Allergies Allergy/AdvReac Type Severity Reaction Status Date / Time No Known Allergies Allergy Verified 03/01/20 15:06 Home Meds: Home Meds Non-Formulary Medication [NF Drug] 1 inh INH TID PRN 01/07/19 [History] Past Medical History - Past Health History Medical/Surgical History: Denies Medical/Surgical History Gastrointestinal History: Reports: None Musculoskeletal History: Reports: Other (See Below) Other Musculoskeletal History: "I broke my back a few years ago" Psychiatric History: Reports: Anxiety - Past Surgical History GI Surgical History: Reports: Appendectomy Social & Family History - Tobacco Use Tobacco Use Status *Q: Current Every Day Tobacco User Years of Tobacco use: 6 Packs/Tins Daily: 1 Used Tobacco, but Quit: No Second Hand Smoke Exposure: Yes - Caffeine Use Caffeine Use: Reports: Coffee, Soda - Recreational Drug Use Recreational Drug Use: No Review of Systems - Review of Systems Review Of Systems: See Below Constitutional: Reports: No Symptoms Eyes: Reports: No Symptoms Ears: Reports: No Symptoms Nose: Reports: No Symptoms Mouth/Throat: Reports: No Symptoms Respiratory: Reports: No Symptoms Cardiovascular: Reports: No Symptoms GI/Abdominal: Reports: No Symptoms Genitourinary: Reports: No Symptoms Musculoskeletal: Reports: Shoulder Pain Skin: Reports: No Symptoms Neurological: Reports: No Symptoms Psychiatric: Reports: No Symptoms ED EXAM, GENERAL - Physical Exam Exam: See Below Exam Limited By: No Limitations General Appearance: Alert, Mild Distress Ears: Normal External Exam Head: Atraumatic Neck: Normal Inspection, Non-Tender, Full Range of Motion Respiratory/Chest: No Respiratory Distress, No Accessory Muscle Use Cardiovascular: Normal Peripheral Pulses Peripheral Pulses: 3+: Radial (L), Radial (R) Back Exam: Normal Inspection, Full Range of Motion Extremities: Normal Inspection, Normal Range of Motion, Other (pain with ROM to right shoulder) Neurological: Alert, Oriented, Normal Gait, Normal Reflexes, No Motor/Sensory Deficits Psychiatric: Normal Affect, Normal Mood Skin Exam: Warm, Dry, Intact, Normal Color Lymphatic: No Adenopathy Departure - Departure Time of Disposition: 15:52 Disposition: Home, Self-Care 01 Condition: Good Clinical Impression: Shoulder pain, right Qualifiers: Chronicity: acute Qualified Code(s): M25.511 - Pain in right shoulder - Discharge Information *PRESCRIPTION DRUG MONITORING PROGRAM REVIEWED*: Not Applicable *COPY OF PRESCRIPTION DRUG MONITORING REPORT IN PATIENT ARTURO: Not Applicable Instructions: Shoulder Pain Referrals: PCP,None [Primary Care Provider] - Additional Instructions: You may use heat and/or thermacare pads. Please take 600mg ibuprofen and 650mg of tylenol every 6 hours with food for the pain. Continue gentle movement exercises. Return to ED for any increased or new concerning pain.
[2020-05-01] MEDS ORDERED: Ibuprofen 600 MG Tab ONE (15:56)
[2020-05-01] MEDS ORDERED: Acetaminophen 325 MG Tab ONE (15:56)
== END 2020-05-01 16:03 | disposition home or self-care (01) ==
LOC: LB.ED 14:56
DX: M25.511 Pain in right shoulder (principal); F17.210 Nicotine dependence, cigarettes, uncomplicated
CPT/HCPCS: 99283; A9270-GY

== ENCOUNTER 2020-07-21 22:21 | Emergency (ER) | payer MEDICAID ==
--- NOTE | 2020-07-22 02:57 | ER ---
HISTORY OF PRESENT ILLNESS: A 30-year-old male who comes in to the emergency room with his with complaints of waking up feeling lightheaded and dizzy. This started about 30 minutes ago. 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 The patient is not feeling sick. He denies any problems with nausea or vomiting or breathing. He tells me that when he first got up, he did not feel good because of the lightheadedness and dizziness, so he ate a bowl of chili and this did not help, that is when he decided to come in. Nursing staff states that after her initial questioning of the patient, he promptly fell asleep. OBJECTIVE: GENERAL APPEARANCE: upon entering the emergency room, the patient was sleeping. No respiratory distress noted. VITAL SIGNS: Reviewed. He is afebrile. Blood pressure 142/78, pulse 74, respirations 16, O2 sats 98%. The patient was aroused with verbal and physical stimuli. He tells me that he just feels kind of dizzy. He is not having any issues with breathing or pain and does not feel sick. He has not been coughing, and again no problems with nausea. HEENT: Eyes, pupils are slightly dilated. They are reactive to light and equal. Ears, TMs are normal. Nares are patent. Oral mucous membranes are moist. Tonsils not enlarged or injected. Pharynx not inflamed. LUNGS: Clear. CARDIAC: Heart sounds distinct. S1, S2 present. Regular rate. No murmurs. ABDOMEN: Soft. Bowel sounds are present. SKIN: Warm and dry. LABORATORY DATA: CBC is normal. CMP shows a blood glucose of 134. Kidney function and liver enzymes are normal. UA is normal. Urine tox screen is positive for opioids and THC. DIAGNOSIS: Accidental drug overdose, mild in nature. TREATMENT PLAN: During the course of time waiting for the lab results, the patient was sleeping quietly without any sign of respiratory depression or distress. The patient will be discharged home. His will take him home. He is to sleep the rest of the night without taking any further medications and his symptoms should be much better in the morning. If his condition does not improve, they are to call or come back tomorrow as needed. The patient is agreeable with the treatment plan and has no further questions. CRS/MODL /[id number]
== END 2020-07-21 23:45 | disposition home or self-care (01) ==
LOC: LB.ED 22:21
DX: T40.2X1A Poisoning by other opioids, accidental (unintentional), initial encounter (principal)
CPT/HCPCS: 36415; 80053; 80307; 81003; 85025; 99283; 99284

== ENCOUNTER 2020-09-14 08:13 | Emergency (ER) | payer MEDICAID ==
[2020-09-14] MEDS ORDERED: methylPREDNISolone Sodium Succinate 40 MG/1 ML SDV IM ONE (09:21)
--- NOTE | 2020-09-14 09:28 | EDM.PDOC ---
ED HPI GENERAL MEDICAL PROBLEM - General Chief Complaint: General Stated Complaint: POISON NOÉ / PAINI IN TESTICLES Time Seen by Provider: 09/14/20 08:50 Source of Information: Reports: Patient History Limitations: Reports: No Limitations - History of Present Illness INITIAL COMMENTS - FREE TEXT/NARRATIVE: patient presented to the ER with a c/o rash all over his body. Reports that it started 2 days ago after he went into the ditch -to get his truck tire. He reports it happened to him in the past, when he was diagnosed with poison noé and improved with steroids. No SOB . Reports it itches every where. Haven't tried anything yet. Also reports, that he has a slight testicular pain. 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 Denies swelling or pain with urination. Symptoms been going on for a while - reports he feels discomfort after he lifts heavy stuff at work. Already on hydrocodone PO. Onset: Sudden Duration: Day(s): (2) Right Pain Score (Numeric/FACES): 7 - Related Data Allergies Allergy/AdvReac Type Severity Reaction Status Date / Time No Known Allergies Allergy Verified 09/14/20 08:33 Home Meds: Home Meds Non-Formulary Medication [NF Drug] 1 inh INH TID PRN 01/07/19 [History] Hydrocodone/Acetaminophen [Hydrocodon-Acetaminophen 5-325] 1 tab PO ASDIRECTED 07/21/20 [History] clonazePAM [Clonazepam] 0.5 mg PO BID 07/21/20 [History] QUEtiapine Fumarate [Seroquel] 300 mg PO DAILY 09/14/20 [History] hydrOXYzine HCL [hydrOXYzine] 50 mg PO BID PRN 09/14/20 [History] Past Medical History - Past Health History Medical/Surgical History: Denies Medical/Surgical History Gastrointestinal History: Reports: None Musculoskeletal History: Reports: Other (See Below) Other Musculoskeletal History: "I broke my back a few years ago" Psychiatric History: Reports: Anxiety - Past Surgical History GI Surgical History: Reports: Appendectomy Male Surgical History: Reports: Other (See Below) Other Male Surgeries/Procedures: testicular pain Social & Family History - Tobacco Use Years of Tobacco use: 10 Packs/Tins Daily: 1.5 - Caffeine Use Caffeine Use: Reports: Soda - Recreational Drug Use Recreational Drug Type: Reports: Marijuana/Hashish Other Recreational Drug Type: medical marijuana ED ROS GENERAL - Review of Systems Review Of Systems: See Below Constitutional: Reports: No Symptoms HEENT: Reports: No Symptoms Respiratory: Reports: No Symptoms Cardiovascular: Reports: No Symptoms GI/Abdominal: Reports: No Symptoms Skin: Reports: Pruritis, Rash Neurological: Reports: No Symptoms Psychiatric: Reports: Anxiety ED EXAM, GENERAL - Physical Exam Exam: See Below Exam Limited By: No Limitations General Appearance: Alert, No Apparent Distress Eye Exam: Bilateral Eye: EOMI Respiratory/Chest: No Respiratory Distress Cardiovascular: Normal Peripheral Pulses (Male) Exam: No Hernia, Scrotum Tenderness (R) (very minimal discomfort - but no actual tenderness ). No: Hernia, Penile Lesions, Scrotal Swelling, Testicular Mass, Urethral Discharge Skin Exam: Rash (throught his body) Course - Vital Signs Last Recorded V/S: Last Vital Signs Temp 37.0 C 09/14/20 08:34 Pulse 85 09/14/20 08:34 Resp 18 09/14/20 08:34 BP 149/68 H 09/14/20 08:34 Pulse Ox 100 09/14/20 08:34 - Orders/Labs/Meds Orders: Active Orders 24 hr Category Date Time Status UA RFX OPHELIA AND CULT IF INDIC [URIN] Urgent Lab 09/14/20 09:30 Ordered Ketorolac [Toradol] Med 09/14/20 10:20 Once 60 mg IM ONETIME ONE Meds: Medications Discontinued Medications Generic Name Dose Route Start Last Admin Trade Name Freq PRN Reason Stop Dose Admin Methylprednisolone Sodium Succinate 40 mg 09/14/20 09:21 09/14/20 09:25 Methylprednisolone Sodium Succinate 40 Mg/1 Ml Sdv IM 09/14/20 09:22 40 mg ONETIME ONE Administration - Re-Assessments/Exams Free Text/Narrative Re-Assessment/Exam: For rash - IM solumedrol 40mg was given For testicular symptom - UA was ordered to rule out a UTI - this was WNL patient to be d/cd on a medrol dose sharath Departure - Departure Time of Disposition: 10:21 Disposition: Home, Self-Care 01 Condition: Good Clinical Impression: Poison noé dermatitis - Discharge Information *PRESCRIPTION DRUG MONITORING PROGRAM REVIEWED*: Not Applicable *COPY OF PRESCRIPTION DRUG MONITORING REPORT IN PATIENT ARTURO: Not Applicable Instructions: Poison [place] Dermatitis, [id number] Referrals: PCP,None [Primary Care Provider] - Forms: ED Department Discharge Sepsis Event Note (ED) - Evaluation Sepsis Screening Result: No Definite Risk - Focused Exam Vital Signs: Vital Signs Temp Pulse Resp BP Pulse Ox 09/14/20 08:34 37.0 C 85 18 149/68 H 100 - Problem List & Annotations (1) Poison noé dermatitis SNOMED Code(s): 399128865 Code(s): L23.7 - ALLERGIC CONTACT DERMATITIS DUE TO PLANTS, EXCEPT FOOD Status: Acute Priority: Low Current Visit: Yes - Problem List Review Problem List Initiated/Reviewed/Updated: Yes - My Orders Last 24 Hours: My Active Orders 09/14/20 09:30 UA RFX OPHELIA AND CULT IF INDIC [URIN] Urgent 09/14/20 10:20 Ketorolac [Toradol] 60 mg IM ONETIME ONE - Assessment/Plan Last 24 Hours: My Active Orders 09/14/20 09:30 UA RFX OPHELIA AND CULT IF INDIC [URIN] Urgent 09/14/20 10:20 Ketorolac [Toradol] 60 mg IM ONETIME ONE Plan: - take prednisone and Benadryl as prescribed - recommend smoking cessation - also recommend to ice the affected area and use ibuprofen to help with discomfort - follow up with your PCP in 1-2 weeks as needed
[2020-09-14] MEDS ORDERED: Ketorolac 60 MG/2 ML SDV IM ONE (10:20)
== END 2020-09-14 10:26 | disposition home or self-care (01) ==
LOC: LB.ED 08:13
DX: L23.7 Allergic contact dermatitis due to plants, except food (principal); Z72.0 Tobacco use
CPT/HCPCS: 81003; 96372; 99284; J1885; J2920; 99283

== ENCOUNTER 2020-11-08 17:10 | Emergency (ER) | payer MEDICAID ==
[2020-11-08] MEDS: Diphtheria,Pertussis(Acell),Tetanus Vaccine 0.5 ML SDV IM ONE (17:20)
--- NOTE | 2020-11-08 17:29 | EDM.PDOC ---
ED HPI GENERAL MEDICAL PROBLEM - General Chief Complaint: General Stated Complaint: STEPPED ON YONI NAIL Time Seen by Provider: 11/08/20 17:15 Source of Information: Reports: Patient History Limitations: Reports: No Limitations - History of Present Illness INITIAL COMMENTS - FREE TEXT/NARRATIVE: stepped on a yoni nail yesterday - bare foot - right side cleaned the wound and applied antibiotics ointment - occurred yesterday - Related Data Allergies Allergy/AdvReac Type Severity Reaction Status Date / Time No Known Allergies Allergy Verified 09/14/20 08:33 Home Meds: Home Meds Non-Formulary Medication [NF Drug] 1 inh INH TID PRN 01/07/19 [History] Hydrocodone/Acetaminophen [Hydrocodon-Acetaminophen 5-325] 1 tab PO ASDIRECTED 07/21/20 [History] clonazePAM [Clonazepam] 0.5 mg PO BID 07/21/20 [History] QUEtiapine Fumarate [Seroquel] 300 mg PO DAILY 09/14/20 [History] hydrOXYzine HCL [hydrOXYzine] 50 mg PO BID PRN 09/14/20 [History] Amoxicillin 500 mg PO BID #6 tab 11/08/20 [Rx] Past Medical History - Past Health History Medical/Surgical History: Denies Medical/Surgical History Gastrointestinal History: Reports: None Musculoskeletal History: Reports: Other (See Below) Other Musculoskeletal History: "I broke my back a few years ago" Psychiatric History: Reports: Anxiety - Past Surgical History GI Surgical History: Reports: Appendectomy Male Surgical History: Reports: Other (See Below) Other Male Surgeries/Procedures: testicular pain Social & Family History - Caffeine Use Caffeine Use: Reports: Soda ED ROS GENERAL - Review of Systems Review Of Systems: See Below Constitutional: Reports: No Symptoms HEENT: Reports: No Symptoms Respiratory: Reports: No Symptoms Cardiovascular: Reports: No Symptoms GI/Abdominal: Reports: No Symptoms Musculoskeletal: Reports: No Symptoms Neurological: Reports: No Symptoms ED EXAM, GENERAL - Physical Exam Exam: See Below Exam Limited By: No Limitations General Appearance: Alert, WD/WN, No Apparent Distress Eye Exam: Bilateral Eye: EOMI Respiratory/Chest: No Respiratory Distress, Lungs Clear Cardiovascular: Normal Peripheral Pulses GI/Abdominal: Normal Bowel Sounds, Soft Skin Exam: Other (there is evidence of small puncture wound to the sole of the right foot - no redness or drainage) Course - Orders/Labs/Meds Orders: Active Orders 24 hr Category Date Time Status Vaccines to be Administered [RC] PER UNIT ROUTINE Care 11/08/20 17:21 Ordered Meds: Medications Discontinued Medications Generic Name Dose Route Start Last Admin Trade Name Fallon PRN Reason Stop Dose Admin Amoxicillin 500 mg 11/08/20 17:22 Amoxicillin 500 Mg Cap PO 11/08/20 17:23 ONETIME ONE Diphtheria/Tetanus/Acell Pertussis 0.5 ml 11/08/20 17:21 Diphtheria,Pertussis(Acell),Tetanus Vaccine 0.5 Ml Sdv IM 11/08/20 17:22 .ONCE ONE - Re-Assessments/Exams Free Text/Narrative Re-Assessment/Exam: 11/08/20 17:27 wound was cleaned tdap was given amoxicillin was given and prescribed Departure - Departure Time of Disposition: 17:26 Disposition: Home, Self-Care 01 Condition: Good Clinical Impression: Puncture wound with foreign body, right foot, initial encounter - Discharge Information *PRESCRIPTION DRUG MONITORING PROGRAM REVIEWED*: Not Applicable *COPY OF PRESCRIPTION DRUG MONITORING REPORT IN PATIENT ARTURO: Not Applicable Prescriptions: Amoxicillin 500 mg PO BID #6 tab - Problem List & Annotations (1) Puncture wound with foreign body, right foot, initial encounter SNOMED Code(s): 719431574, [id number] Code(s): S91.341A - PUNCTURE WOUND WITH FOREIGN BODY, RIGHT FOOT, INIT ENCNTR Status: Acute Priority: Low - Problem List Review Problem List Initiated/Reviewed/Updated: Yes - My Orders Last 24 Hours: My Active Orders 11/08/20 17:21 Vaccines to be Administered [RC] PER UNIT ROUTINE - Assessment/Plan Last 24 Hours: My Active Orders 11/08/20 17:21 Vaccines to be Administered [RC] PER UNIT ROUTINE Plan: - take oral antibiotics as prescribed - keep wound dry and clean - apply antibiotics ointment on the wound at least once daily
[2020-11-08] MEDS: Amoxicillin 500 MG Cap PO ONE (17:32)
== END 2020-11-08 17:50 | disposition home or self-care (01) ==
LOC: LB.ED 17:10
DX: S91.341A Puncture wound with foreign body, right foot, initial encounter (principal); Z23 Encounter for immunization; W22.8XXA Striking against or struck by other objects, initial encounter
CPT/HCPCS: 90471; 90715; 99283; A9270-GY

== ENCOUNTER 2020-12-09 11:55 | Emergency (ER) | payer MEDICAID ==
--- NOTE | 2020-12-09 12:14 | EDM.PDOC ---
ED HPI GENERAL MEDICAL PROBLEM - General Stated Complaint: PINK EYE Time Seen by Provider: 12/09/20 11:55 - History of Present Illness INITIAL COMMENTS - FREE TEXT/NARRATIVE: Patient is here with complaints of redness itching and discomfort involving the right eye. He woke up with the symptoms a couple of nights ago. He has not had any drainage or discharge from the eye. He denies any injury to the eye and is not aware of any possible insect bite. The patient has not been running a fever, and denies any problems with coughing sneezing or wheezing. - Related Data Allergies Allergy/AdvReac Type Severity Reaction Status Date / Time No Known Allergies Allergy Verified 09/14/20 08:33 Home Meds: Home Meds Non-Formulary Medication [NF Drug] 1 inh INH TID PRN 01/07/19 [History] Hydrocodone/Acetaminophen [Hydrocodon-Acetaminophen 5-325] 1 tab PO ASDIRECTED 07/21/20 [History] clonazePAM [Clonazepam] 0.5 mg PO BID 07/21/20 [History] QUEtiapine Fumarate [Seroquel] 300 mg PO DAILY 09/14/20 [History] hydrOXYzine HCL [hydrOXYzine] 50 mg PO BID PRN 09/14/20 [History] Amoxicillin 500 mg PO BID #6 tab 11/08/20 [Rx] Past Medical History - Past Health History Medical/Surgical History: Denies Medical/Surgical History Gastrointestinal History: Reports: None Musculoskeletal History: Reports: Other (See Below) Other Musculoskeletal History: "I broke my back a few years ago" Psychiatric History: Reports: Anxiety - Past Surgical History GI Surgical History: Reports: Appendectomy Male Surgical History: Reports: Other (See Below) Other Male Surgeries/Procedures: testicular pain Social & Family History - Family History Family Medical History: No Pertinent Family History - Caffeine Use Caffeine Use: Reports: Energy Drinks ED ROS GENERAL - Review of Systems Review Of Systems: Comprehensive ROS is negative, except as noted in HPI. HEENT: Reports: Other (Redness and swelling around Rt eye.) ED EXAM, SKIN/RASH Exam: See Below Eye Exam: Right Eye: Other (Redness and swelling around the Rt eye. Sclera is white. No drainage noted. I could not see any sign of an insect bite.) Departure - Departure Time of Disposition: 12:05 Disposition: Home, Self-Care 01 Condition: Good Clinical Impression: Allergic reaction - Discharge Information *PRESCRIPTION DRUG MONITORING PROGRAM REVIEWED*: Not Applicable *COPY OF PRESCRIPTION DRUG MONITORING REPORT IN PATIENT ARTURO: Not Applicable Referrals: Conrado Barrett MD [Primary Care Provider] - Additional Instructions: Patient will be discharged on Benadryl which he is to use 1 or 2 tablets every 6 hours for the next couple of days. I also will put him on a low-dose prednisone 20 mg today followed by 10 mg a day for 3 days.
== END 2020-12-09 12:10 | disposition home or self-care (01) ==
LOC: LB.ED 11:55
DX: T78.40XA Allergy, unspecified, initial encounter (principal); Z79.899 Other long term (current) drug therapy
CPT/HCPCS: 99282

== ENCOUNTER 2021-04-12 09:30 | Emergency (ER) | payer MEDICAID ==
[2021-04-12] MEDS ORDERED: Ketorolac 30 MG/ML SDV IM ONE (09:46)
[2021-04-12] MEDS ORDERED: Ketorolac 30 MG/ML SDV ONE (10:12)
--- NOTE | 2021-04-12 10:56 | EDM.PDOC ---
ED HPI GENERAL MEDICAL PROBLEM - General Chief Complaint: Abdominal Pain Stated Complaint: RIGHT SIDE PAIN Time Seen by Provider: 04/12/21 09:30 Source of Information: Reports: Patient History Limitations: Reports: No Limitations - History of Present Illness INITIAL COMMENTS - FREE TEXT/NARRATIVE: 22-year-old male presents to the ED complaining of a gradual onset of right flank pain. Patient describes the pain as a gradual onset that gets worse with movement. Does not get better with Tylenol. Pain appears to be positional at times. Pain radiates around to the backOn the right side. He describes his pain as a dull constant squeezing. Patient positive for: Intermittent flow interruption. Negative for blood in urine, dark urine. patient denies chest pain, shortness of breath, near syncope/syncope, nausea vomiting, constipation/diarrhea dizzy lightheaded, blurred vision, red swollen joints, difficulty swallowing, fever Right Abdomen Pain Score (Numeric/FACES): 7 - Related Data Allergies Allergy/AdvReac Type Severity Reaction Status Date / Time No Known Allergies Allergy Verified 04/12/21 09:39 Home Meds: Home Meds Non-Formulary Medication [NF Drug] 1 inh INH TID PRN 01/07/19 [History] Acetaminophen/HYDROcodone [HYDROcodone-Acetaminophen 5-325 MG *] 1 tab PO Q6H PRN #12 each 04/12/21 [Rx] Tamsulosin [Flomax] 0.4 mg PO DAILY #14 cap.er 04/12/21 [Rx] Past Medical History - Past Health History Medical/Surgical History: Denies Medical/Surgical History Gastrointestinal History: Reports: None Musculoskeletal History: Reports: Other (See Below) Other Musculoskeletal History: L1 T10 fracture ([id number]) Psychiatric History: Reports: Anxiety - Past Surgical History GI Surgical History: Reports: Appendectomy Male Surgical History: Reports: Other (See Below) Other Male Surgeries/Procedures: testicular pain Social & Family History - Family History Family Medical History: No Pertinent Family History - Tobacco Use Tobacco Use Status *Q: Current Every Day Tobacco User Years of Tobacco use: 12 Packs/Tins Daily: 2 - Caffeine Use Caffeine Use: Reports: Energy Drinks ED ROS GENERAL - Review of Systems Review Of Systems: Comprehensive ROS is negative, except as noted in HPI. ED EXAM, RENAL/ - Physical Exam Exam: See Below Text/Narrative:: 30-year-old male found semifowler position in bay to ED. ABC intact. Patient appears to be in moderate distress secondary to pain. No obvious trauma noted patient speaking in full sentences. Alert and oriented through 3 GCS 4 5 6 Exam Limited By: No Limitations General Appearance: Alert, WD/WN, Moderate Distress Eye Exam: Bilateral Eye: EOMI, PERRL Ears: Normal External Exam, Hearing Grossly Normal Nose: Normal Inspection, No Blood Head: Atraumatic, Normocephalic Respiratory/Chest: No Respiratory Distress, Lungs Clear, Normal Breath Sounds, No Accessory Muscle Use, Chest Non-Tender Cardiovascular: Normal Peripheral Pulses, Regular Rate, Rhythm, No Edema, No Gallop, No JVD, No Murmur, No Rub GI/Abdominal: Soft, No Organomegaly, No Distention, Tender (Right flank right upper quadrant right lower quadrant), Other (Positive Kurtz sign, negative rebound tenderness, negative Rovsing) Back Exam: Normal Inspection, CVA Tenderness (R). No: CVA Tenderness (L) Extremities: Normal Inspection, Normal Range of Motion, Non-Tender, Normal Capillary Refill, No Pedal Edema Neurological: Alert, Oriented, Normal Cognition Psychiatric: Normal Affect, Normal Mood Skin Exam: Warm, Dry, Intact, Normal Color, No Rash Lymphatic: No Adenopathy Course - Vital Signs Last Recorded V/S: Last Vital Signs Temp 98.5 F 04/12/21 09:45 Pulse 78 04/12/21 09:45 Resp 16 04/12/21 09:45 BP 137/79 04/12/21 09:45 Pulse Ox 97 04/12/21 09:45 - Orders/Labs/Meds Orders: Active Orders 24 hr Category Date Time Status Abdomen Pelvis wo Cont [CT] Stat Exams 04/12/21 09:47 Taken Peripheral IV Insertion Adult [OM.PC] Routine Oth 04/12/21 11:06 Ordered Labs: Laboratory Tests 04/12/21 04/12/21 04/12/21 Range/Units 09:46 10:06 10:06 WBC 6.7 D (4.0-11.0) K/uL RBC 4.84 (4.50-6.50) M/uL Hgb 16.0 (13.0-18.0) g/dL Hct 45.2 (40.0-54.0) % MCV 93 (76-96) fL MCH 33.1 H (27.0-32.0) pg MCHC 35.4 H (31.0-35.0) g/dL RDW 11.8 (11.0-16.0) % Plt Count 206 (150-400) K/uL MPV 9.3 (6.0-10.0) fL Neut % (Auto) 61.3 (45.0-70.0) % Lymph % (Auto) 25.8 (20.0-40.0) % [place] % (Auto) 11.6 H (3.0-10.0) % Eos % (Auto) 1.0 (1.0-5.0) % Baso % (Auto) 0.3 (0.0-0.5) % Neut # (Auto) 4.11 (2.00-7.50) K/uL Lymph # (Auto) 1.73 (1.50-4.00) K/uL [place] # (Auto) 0.78 (0.20-0.80) K/uL Eos # (Auto) 0.07 (0.04-0.40) K/uL Baso # (Auto) 0.02 (0.02-0.10) K/uL Sodium 139 (136-145) mmol/L Potassium 4.6 D (3.5-5.1) mmol/L Chloride 105 (98-107) mmol/L Carbon Dioxide 28.8 (21.0-32.0) mmol/L Anion Gap 9.8 (5.0-15.0) mmol/L BUN 16 (8-26) mg/dL Creatinine 0.89 (0.70-1.30) mg/dL Est Cr Clr Drug Dosing 95.43 mL/min Estimated GFR (MDRD) > 60 (>60) MLS/MIN BUN/Creatinine Ratio 18.0 (6-25) Glucose 102 H (74-100) mg/dL Calcium 9.0 (8.5-10.1) mg/dL Troponin I < 0.017 (0.000-0.060) ng/mL Lipase 108 (73-393) U/L Urine Color Yellow Urine Appearance Clear (CLEAR) Urine pH 6.5 (5.0-8.0) Ur Specific [place] 1.025 (1.003-1.030) Urine Protein Negative (NEGATIVE) mg/dL Urine Glucose (UA) Negative (NEGATIVE) mg/dL Urine Ketones Negative (NEGATIVE) mg/dL Urine Occult Blood Negative (NEGATIVE) Urine Nitrite Negative (NEGATIVE) Urine Bilirubin Negative (NEGATIVE) Urine Urobilinogen 0.2 (0.2-1.0) E.U./dL Ur Leukocyte Esterase Negative (NEGATIVE) Meds: Medications Discontinued Medications Generic Name Dose Route Start Last Admin Trade Name Freq PRN Reason Stop Dose Admin Hydrocodone Bitart/Acetaminophen 1 tab 04/12/21 11:31 04/12/21 12:01 Acetaminophen/Hydrocodone 325-5 Mg Tab PO 04/12/21 11:32 1 tab ONETIME ONE Administration Sodium Chloride 1,000 mls @ 250 mls/hr 04/12/21 11:15 04/12/21 11:00 Normal Saline IV 250 mls/hr ASDIRECTED CASSANDRA Administration Ketorolac Tromethamine 30 mg 04/12/21 09:46 04/12/21 10:03 Ketorolac 30 Mg/Ml Sdv IM 04/12/21 09:47 30 mg ONETIME ONE Administration Ketorolac Tromethamine Confirm 04/12/21 10:12 04/12/21 10:26 Ketorolac 30 Mg/Ml Sdv Administered 04/12/21 10:13 Not Given Dose 30 mg .ROUTE .STK-MED ONE Sodium Chloride 10 ml 04/12/21 11:06 Sodium Chloride 0.9% 10 Ml Syringe FLUSH ASDIRECTED PRN Keep Vein Open Tamsulosin HCl 0.4 mg 04/12/21 11:05 04/12/21 12:01 Tamsulosin 0.4 Mg Cap.Er PO 04/12/21 11:06 0.4 mg ONETIME ONE Administration Departure - Departure Time of Disposition: 13:30 Disposition: Home, Self-Care 01 Clinical Impression: Ureteral stone Abdominal pain Qualifiers: Abdominal location: unspecified location Qualified Code(s): R10.9 - Unspecified abdominal pain - Discharge Information Prescriptions: Tamsulosin [Flomax] 0.4 mg PO DAILY #14 cap.er Acetaminophen/HYDROcodone [HYDROcodone-Acetaminophen 5-325 MG *] 1 tab PO Q6H PRN #12 each PRN Reason: Abdominal Pain Instructions: Kidney Stones, [id number], Dietary Guidelines to Help Prevent Kidney Stones Referrals: PCP,None [Primary Care Provider] - Forms: ED Department Discharge Sepsis Event Note (ED) - Evaluation Sepsis Screening Result: No Definite Risk - Focused Exam Vital Signs: Vital Signs Temp Pulse Resp BP Pulse Ox 04/12/21 09:45 98.5 F 78 16 137/79 97 - My Orders Last 24 Hours: My Active Orders 04/12/21 09:47 Abdomen Pelvis wo Cont [CT] Stat 04/12/21 11:06 Peripheral IV Insertion Adult [OM.PC] Routine - Assessment/Plan Last 24 Hours: My Active Orders 04/12/21 09:47 Abdomen Pelvis wo Cont [CT] Stat 04/12/21 11:06 Peripheral IV Insertion Adult [OM.PC] Routine Assessment:: 30-year-old male who presents with right flank pain. Differential diagnosis considered includes urolithiasis. UTI, pyelonephritis, appendicitis, colitis, gastrointestinal bleed, diverticulitis, volvulus, or blunt trauma. Signs and symptoms are consistent with urolithiasis as confirmed by CT. Patient's pain is controlled in the ED with ketorolac 30 mg IM patient is given Flomax in the ED. And will go home on same. No signs of infected stone. Patient is hemodynamically stable in the ED. Plan is home with abdominal pain recheck with primary care physician or return to the ED if symptoms worsen. Urolithiasis precautions for home were given. Questions were answered to the patient's satisfaction. 1. Ureter stone 2. Pain Plan: ABC, history, exam, labs, CT abdomen pelvis, ketorolac IM, IV, normal saline, tamsulosin, transition to oral medications for pain, ambulatory prescription for pain medication and tamsulosin
[2021-04-12] MEDS ORDERED: Tamsulosin 0.4 MG Cap.ER PO ONE (11:05)
[2021-04-12] MEDS ORDERED: Sodium Chloride 0.9% 10 ML Syringe FLUSH PRN (11:06)
[2021-04-12] MEDS ORDERED: Sodium Chloride 0.9% 1,000 ML IV SCH (11:15)
[2021-04-12] MEDS ORDERED: Acetaminophen/HYDROcodone 325-5 MG Tab PO ONE (11:31)
--- NOTE | 2021-04-13 11:53 | CT ---
DATE OF SERVICE: 04/12/2021 CLINICAL DATA: Pain Unenhanced abdomen and pelvic CT: Multi slice acquisition through the abdomen and pelvis without IV or oral contrast was performed. Comparison is made to a prior exam dated 21 August 2014. The the lung bases are clear. The the heart size is normal. The unenhanced liver appears normal. No focal hepatic lesions. The gallbladder appears normal. The spleen appears normal. The pancreas appears normal. The right and left adrenals appear normal. The right and left kidneys appear normal. No nephrocalcinosis or nephrolithiasis. No hydronephrosis or hydroureter. No ureterolithiasis. There is a small amount of fluid within the bladder. There is diffuse bladder wall thickening. This is probably related to nondistention. Cystitis should be considered. There is a 5 mm appendicoliths within the appendix. The appendix is not dilated. No periappendiceal fluid. No free air. No free fluid. No dilated loops of bowel. No adenopathy. No aortic aneurysm. There is compression deformity of the superior endplate of L1 with approximately 30-40% loss of height. It is probably chronic. No other bony abnormalities. MTDD
== END 2021-04-12 13:27 | disposition home or self-care (01) ==
LOC: LB.ED 09:30
DX: N20.1 Calculus of ureter (principal); Z72.0 Tobacco use
CPT/HCPCS: 36415; 74176; 80048; 81003; 83690; 84484; 85025; 93005; 96372; 99284; A9270; J1885; J7030

== ENCOUNTER 2021-04-15 15:38 | Emergency (ER) | payer MEDICAID ==
[2021-04-15 15:52] VITALS: BP 139/68; PULSE 76
--- NOTE | 2021-04-15 16:18 | EDM.PDOC ---
ED HPI GENERAL MEDICAL PROBLEM - General Chief Complaint: Flank Pain Stated Complaint: KIDNEY STONE Right Flank Pain Score (Numeric/FACES): 6 - Related Data Allergies Allergy/AdvReac Type Severity Reaction Status Date / Time No Known Allergies Allergy Verified 04/15/21 15:43 Home Meds: Home Meds Non-Formulary Medication [NF Drug] 1 inh INH TID PRN 01/07/19 [History] Acetaminophen/HYDROcodone [HYDROcodone-Acetaminophen 5-325 MG *] 1 tab PO Q6H PRN #12 each 04/12/21 [Rx] Tamsulosin [Flomax] 0.4 mg PO DAILY #14 cap.er 04/12/21 [Rx] Past Medical History - Past Health History Medical/Surgical History: Denies Medical/Surgical History Gastrointestinal History: Reports: None Musculoskeletal History: Reports: Other (See Below) Other Musculoskeletal History: L1 T10 fracture ([id number]) Psychiatric History: Reports: Anxiety - Past Surgical History GI Surgical History: Reports: Appendectomy Male Surgical History: Reports: Other (See Below) Other Male Surgeries/Procedures: testicular pain Social & Family History - Family History Family Medical History: No Pertinent Family History - Tobacco Use Packs/Tins Daily: 2 - Caffeine Use Caffeine Use: Reports: Energy Drinks - Recreational Drug Use Recreational Drug Use: No Course - Vital Signs Last Recorded V/S: Last Vital Signs Temp 36.6 C 04/15/21 15:48 Pulse 76 04/15/21 15:48 Resp 18 04/15/21 15:48 BP 139/68 04/15/21 15:48 Pulse Ox 98 04/15/21 15:48 Departure - Departure Time of Disposition: 16:15 Disposition: Home, Self-Care 01 Condition: Good Clinical Impression: Abdominal pain - Discharge Information Referrals: PCP,None [Primary Care Provider] - Sepsis Event Note (ED) - Evaluation Sepsis Screening Result: No Definite Risk - Focused Exam Vital Signs: Vital Signs Temp Pulse Resp BP Pulse Ox 04/15/21 15:48 36.6 C 76 18 139/68 98
--- NOTE | 2021-04-15 16:23 | EDM.PDOC ---
ED HPI GENERAL MEDICAL PROBLEM - General Chief Complaint: Flank Pain Stated Complaint: KIDNEY STONE Time Seen by Provider: 04/15/21 15:50 Source of Information: Reports: Patient History Limitations: Reports: No Limitations - History of Present Illness INITIAL COMMENTS - FREE TEXT/NARRATIVE: This patient presents to the emergency department for evaluation of abdominal pain. He states that he was seen here on 1130 and diagnosed with kidney stones. Review of record does not find any evidence of kidney stones on abdominal CT however he was noted to have a 5 mm appendicolith. He states he has not passed anything and has used up all of his hydromorphone he was given at discharge. He has continued to take Flomax. He states the pain is some better and now rates it it is 6 however it is not gone. He continues to have a very good appetite and had a [employer] cheeseburger prior to admission today. He has not had any vomiting or diarrhea. He is going to work. He denies a fever. He moves very well and does not seem to be painful with climbing on and off the ED cart. He denies other concerns or complaints but is requesting more pain medication. Right Flank Pain Score (Numeric/FACES): 6 - Related Data Allergies Allergy/AdvReac Type Severity Reaction Status Date / Time No Known Allergies Allergy Verified 04/15/21 15:43 Home Meds: Home Meds Non-Formulary Medication [NF Drug] 1 inh INH TID PRN 01/07/19 [History] Acetaminophen/HYDROcodone [HYDROcodone-Acetaminophen 5-325 MG *] 1 tab PO Q6H PRN #12 each 04/12/21 [Rx] Tamsulosin [Flomax] 0.4 mg PO DAILY #14 cap.er 04/12/21 [Rx] Past Medical History - Past Health History Medical/Surgical History: Denies Medical/Surgical History Gastrointestinal History: Reports: None Musculoskeletal History: Reports: Other (See Below) Other Musculoskeletal History: L1 T10 fracture ([id number]) Psychiatric History: Reports: Anxiety - Past Surgical History GI Surgical History: Reports: Appendectomy Male Surgical History: Reports: Other (See Below) Other Male Surgeries/Procedures: testicular pain Social & Family History - Family History Family Medical History: No Pertinent Family History - Tobacco Use Packs/Tins Daily: 2 - Caffeine Use Caffeine Use: Reports: Energy Drinks - Recreational Drug Use Recreational Drug Use: No ED ROS GENERAL - Review of Systems Review Of Systems: Comprehensive ROS is negative, except as noted in HPI. ED EXAM, GI/ABD - Physical Exam Exam: See Below Exam Limited By: No Limitations General Appearance: Alert, WD/WN, No Apparent Distress Eyes: Bilateral: Normal Appearance Ears: Normal External Exam Nose: Normal Inspection Head: Atraumatic, Normocephalic Neck: Normal Inspection Respiratory/Chest: No Respiratory Distress, No Accessory Muscle Use GI/Abdominal Exam: Normal Bowel Sounds, Soft, Non-Tender, No Distention Neurological: Alert, Oriented Course - Vital Signs Last Recorded V/S: Last Vital Signs Temp 36.6 C 04/15/21 15:48 Pulse 76 04/15/21 15:48 Resp 18 04/15/21 15:48 BP 139/68 04/15/21 15:48 Pulse Ox 98 04/15/21 15:48 - Re-Assessments/Exams Free Text/Narrative Re-Assessment/Exam: This patient presents to the emergency department for evaluation of continued abdominal pain. He was here earlier this week and was treated with Flomax and hydromorphone for a suspected kidney stone. He did have a CT scan however there was no kidney stones identified on the scan. Patient states he has not passed anything at this point. I did review the CT scan results and noted a 5 mm stone in the what is likely appendix stump and contacted general surgeon at [place], Dr. Pagan. He did review the scans in detail and suspects this may be a staple from the previous appendectomy. At this time there was no evidence of gallbladder disease, pancreatitis, diverticular disease, bowel obstruction, volvulus, intussusception, gastritis or peptic ulcer disease, gastroenteritis, inflammatory bowel disease, peritonitis, kidney stones, urinary tract infection, or mesenteric lymphadenitis. I suspect that the stone may be related to some inflammation in that area of his lower abdomen but my suspicion of an intra- abdominal catastrophe is very low. There is no indication for admission at this time and there is no indication for continued narcotic pain medication. He was instructed to return for fevers greater than 102, increasing pain, vomiting, other new symptoms. The patient was stable at the time of discharge. 04/15/21 16:20 Departure - Departure Time of Disposition: 16:20 Disposition: Home, Self-Care 01 Condition: Good Clinical Impression: Abdominal pain - Discharge Information Referrals: PCP,None [Primary Care Provider] - Forms: ED Department Discharge Sepsis Event Note (ED) - Evaluation Sepsis Screening Result: No Definite Risk - Focused Exam Vital Signs: Vital Signs Temp Pulse Resp BP Pulse Ox 04/15/21 15:48 36.6 C 76 18 139/68 98
== END 2021-04-15 16:27 | disposition home or self-care (01) ==
LOC: LB.ED 15:38
DX: R10.9 Unspecified abdominal pain (principal); Z72.0 Tobacco use
CPT/HCPCS: 99283

== ENCOUNTER 2021-06-15 15:00 | Emergency (ER) | payer MEDICAID | END 2021-06-15 16:05 | disposition home or self-care (01) | LOC: LB.ED 15:00 | DX: U07.1 COVID-19 (principal); Z79.899 Other long term (current) drug therapy | CPT/HCPCS: 99283; U0002 ==

== ENCOUNTER 2021-10-17 14:18 | Emergency (ER) | payer MEDICAID ==
[2021-10-17 15:10] VITALS: BP 117/70; PULSE 77
== END 2021-10-17 15:20 | disposition home or self-care (01) ==
LOC: LB.ED 14:18
DX: K08.89 Other specified disorders of teeth and supporting structures (principal); Z79.899 Other long term (current) drug therapy
CPT/HCPCS: 99281; 99282

== ENCOUNTER 2022-04-17 11:56 | Emergency (ER) | payer MEDICAID ==
[2022-04-17 14:24] LABS: ESTIMATED GFR 120 mL/min (>60)
[2022-04-17] MEDS ORDERED: Ondansetron 4 MG Tab.DIS PO ONE (14:43)
[2022-04-17] MEDS ORDERED: Aluminum Hydroxide/Magnesium Hydroxide/Simethicone Susp 30 ML Cup PO PRN (14:44)
[2022-04-17] MEDS: Ondansetron 4 MG Tab.DIS PO ONE (14:46)
[2022-04-17] MEDS: Aluminum Hydroxide/Magnesium Hydroxide/Simethicone Susp 30 ML Cup PO ONE (14:46)
[2022-04-17] MEDS ORDERED: Ondansetron 4 MG Tab.DIS ONE (14:51)
== END 2022-04-17 16:00 | disposition home or self-care (01) ==
LOC: LB.ED 11:56
DX: K29.20 Alcoholic gastritis without bleeding (principal); Z20.822 Contact with and (suspected) exposure to COVID-19
CPT/HCPCS: 36415; 80048; 85025; 87635; 87804; 99283; A9270; Q0162; U0002